=== PATIENT | female | born 1935 | race Hispanic/Latino ===

== ENCOUNTER 2018-01-21 16:31 | Inpatient (IN) | payer MEDICARE ==
[2018-01-21 16:35] VITALS: BMI 26.6
--- NOTE | 2018-01-21 17:00 | ED PDOC ---
Arrival/HPI - General Chief Complaint: Lower Extremity Problem/Injury Time Seen by Provider: 01/21/18 16:49 Historian: Patient, Family - History of Present Illness Narrative History of Present Illness (Text): 01/21/18 16:57 A 83 year old male, whose past medical history includes hypertension and falls, who is accompanied by family members, presents to the emergency department complaining of pain s/p fall. Patient reports she was holding items in one hand, and was walking up stairs. As she reach for the handle, she missed the handle of the door and resulted in falling backwards, resulting in injuring her head, left elbow, and right knee/leg. Patient notes also experiencing some lightheadedness, however denies any LOC, bilateral hip pain, left shoulder pain, nausea, vomiting, or any other complaints at this time. Also, family member mentions patient recently had surgery performed to left arm, and also patient currently does not take any medications. No PMD Time/Duration: Other (today) Symptom Onset: Sudden Symptom Course: Unchanged Past Medical History - Provider Review Nursing Documentation Reviewed: Yes - Infectious Disease Hx of Infectious Diseases: None - Tetanus Immunization Tetanus Immunization: Unknown - Cardiac Hx Hypertension: Yes - Pulmonary Hx Bronchitis: Yes Hx Chronic Obstructive Pulmonary Disease (COPD): Yes Hx Emphysema: Yes - Neurological Hx Paralysis: No - HEENT Hx Cataracts: Yes - Hematological/Oncological Hx Blood Transfusions: No Hx Blood Transfusion Reaction: No - Musculoskeletal/Rheumatological Hx Falls: Yes - Psychiatric Hx Anxiety: Yes Hx Depression: Yes Hx Substance Use: No - Anesthesia Hx Anesthesia Reactions: No Hx Malignant Hyperthermia: No - Suicidal Assessment Feels Threatened In Home Enviroment: No Family/Social History - Physician Review Nursing Documentation Reviewed: Yes Family/Social History: No Known Family HX Smoking Status: Current Some Days Smoker Hx Alcohol Use: No Hx Substance Use: No Allergies/Home Meds Allergies/Adverse Reactions: Allergies No Known Allergies Allergy (Verified 01/21/18 16:37) Home Medications: Home Meds Medication Instructions Recorded Confirmed Alprazolam [Xanax] 0.25 mg PO DAILY PRN 07/11/12 01/21/18 Tranylcypromine [Parnate] 10 mg PO DAILY 07/11/12 01/21/18 Metoprolol Succinate 25 mg PO DAILY 07/17/12 01/21/18 Review of Systems - Physician Review All systems were reviewed & negative as marked: Yes - Review of Systems Gastrointestinal: absent: Nausea, Vomiting Musculoskeletal: absent: Other (no hip pain) Physical Exam - Physical Exam Narrative Physical Exam (Text): Constitutional: No acute distress. Head: Left parietal hematoma, no laceration. Eyes: PERRL. ENT: Moist mucous membranes. Neck: Supple. No midline tenderness. Cardiovascular: Regular rate. Chest: No tenderness. Respiratory: Clear to auscultation bilaterally. GI: Soft. Nontender. Nondistended. Back: No CVA tenderness. No midline tenderness. Musculoskeletal: No tenderness or swelling of extremities. Limited ROM to right knee and left elbow, right knee edema/tenderness. Skin: No rash. Neurologic: Alert, no focal deficit. Vital Signs Reviewed: Yes Vital Signs Temp Pulse Resp BP Pulse Ox 01/21/18 16:39 97.3 F L 75 18 159/74 H 95 Temperature: Afebrile Blood Pressure: Hypertensive Pulse: Regular Respiratory Rate: Normal Appearance: Positive for: Well-Appearing, Non-Toxic, Comfortable Pain Distress: None Mental Status: Positive for: Alert and Oriented X 3 Medical Decision Making ED Course and Treatment: 01/21/18 17:00 Impression: 83 year old female brought in for pain s/p fall. Plan: -- Head CT -- Tylenol -- Left Elbow X-Ray -- Right Knee X-Ray -- Right Tibia Fibula X-Ray -- Reassess and disposition Progress Notes: Paged Dr. Barth for Ortho and Dr. Toscano accepts for admission. Pending Ortho call back and pending labs. EKG NSR 75 bpm, no ST/T wave changes. - RAD Interpretation Narrative RAD Interpretations (Text): 01/21/18 18:00 Tibia Fibula X-ray: Proximal tibia and fibula fractures. Interpreted by me. Knee X-ray: No other fractures seen. Interpreted by me. Elbow X-ray: Fracture of olecranon. Interpreted by me. Chest X-ray: shows no acute disease. Interpreted by me. 01/21/18 18:[address] without IV contrast: Dictated by: Ruddy Sterling M.D FINDINGS: BRAIN: No acute intraparenchymal hemorrhage. No mass lesion. No CT evidence for acute territorial infarct. No midline shift or extra-axial collections. VENTRICLES: No hydrocephalus. ORBITS: The orbits are unremarkable. SINUSES AND MASTOIDS: The paranasal sinuses and mastoid air cells are clear. BONES: No fracture. SOFT TISSUES: Scalp hematoma left posterior parietal region. IMPRESSION: 1. No acute intracranial pathology. 2. Scalp hematoma left posterior occipital region. Senior Living Sales Counselor: ED Physician, Radiologist - Medication Orders Current Medication Orders: Acetaminophen (Tylenol 325mg Tab) 650 mg PO STAT STA Stop: 01/21/18 16:56 - Scribe Statement The provider has reviewed the documentation as recorded by the Dorie Sparks Provider Scribe Attestation: All medical record entries made by the Saraibkaro were at my direction and personally dictated by me. I have reviewed the chart and agree that the record accurately reflects my personal performance of the history, physical exam, medical decision making, and the department course for this patient. I have also personally directed, reviewed, and agree with the discharge instructions and disposition. Disposition/Present on Arrival - Present on Arrival Any Indicators Present on Arrival: No History of DVT/PE: No History of Uncontrolled Diabetes: No Urinary Catheter: No History of Decub. Ulcer: No History Surgical Site Infection Following: None - Disposition Have Diagnosis and Disposition been Completed?: Yes Diagnosis: Tibia fracture, Fibula fracture, Elbow fracture Disposition: HOSPITALIZED Disposition Time: 18:00 Patient Plan: Admission Patient Problems: Current Active Problems Problem Status Onset Elbow fracture Acute Fibula fracture Acute Tibia fracture Acute Condition: STABLE Forms: [employer] (Djiboutian)
[2018-01-21 19:02] LABS: BASO # 0.07 K/mm3 (0.0-2.0); BASO % 0.7 % (0.0-3.0); EOS # 0.1 (0.0-0.7); EOS % 0.7 % (1.5-5.0); GRAN # 8.53 (1.4-6.5); GRAN % 79.7 % (50.0-68.0); HEMOGLOBIN 14.3 g/dL (12.0-16.0); LYMPH # 1.5 (1.2-3.4); LYMPH % 13.7 % (22.0-35.0); MEAN CELL VOLUME 99.3 fl (80.0-105.0); MEAN CORPUSCULAR HEMOGLOBIN 31.8 pg (25.0-35.0); MEAN PLATELET VOLUME 10.8 fl (7.0-11.0); MONO # 0.6 (0.1-0.6); MONO % 5.2 % (1.0-6.0); RBC 4.5 10^6/uL (3.5-6.1); RED CELL DISTRIBUTION WIDTH 13.1 % (11.5-14.5); WHITE BLOOD COUNT 10.7 10^3/uL (4.5-11.0)
[2018-01-21 19:11] LABS: INR 1.01; PARTIAL THROMBOPLASTIN TIME 32.2 Seconds (25.1-36.5); PROTHROMBIN TIME 11.5 SECONDS (9.4-12.5)
[2018-01-21 19:19] LABS: ALB/GLOB RATIO 1.3 (1.1-1.8); ALT/SGPT 29 U/L (7-56); AST/SGOT 35 U/L (14-36); BLOOD UREA NITROGEN 19 mg/dL (7-21); CALCIUM 8.8 mg/dL (8.4-10.5); GFR NON-AFRICAN AMERICAN > 60
[2018-01-21] MEDS ORDERED: Dextrose 5%/0.45% NS 1,000 ML IV SCH (20:15)
[2018-01-21] MEDS ORDERED: Albuterol-Ipratrop 3 mg / 0.5 (3 ml) UD IH PRN (21:50)
[2018-01-22] MEDS: Albuterol-Ipratrop 3 mg / 0.5 (3 ml) UD IH SCH ×4 (03:10→20:22)
--- NOTE | 2018-01-22 03:24 | HP ---
DATE OF EXAM: 01/21/2018 HISTORY OF PRESENT ILLNESS: The patient is an 83 years old known to me from multiple previous admissions, came to emergency room after she had a fall. Fall happened early afternoon. She had couple of things holding in her hand and was going upstairs. She states she was trying to get hold of side railing, but could not reach and lost balance and fell backwards, and she fell on her left side injuring her left elbow and complained of pain in the right leg. The patient was unable to walk, did not lose consciousness. Because of the pain in the left arm and right arm, she was brought to emergency room for further evaluation. PAST MEDICAL HISTORY: She has significant past medical history of, 1. Severe COPD. 2. History of depression. 3. Chronic bronchitis. SURGICAL HISTORY: Significant for left humerus fracture, for that she was operated by Dr. Barth in 2012. ALLERGIES: SHE IS NOT ALLERGIC TO ANY MEDICATIONS. MEDICATIONS AT HOME: She is on . She is on Xanax as needed and she takes inhaler cetirizine for her COPD. SOCIAL HISTORY: She lives with her son. Used to be heavy smoker, but still smokes here and there. Denies alcohol use. PHYSICAL EXAMINATION: GENERAL: She is awake, alert, oriented, and communicative. VITAL SIGNS: She is afebrile, pulse 75, respirations 18, blood pressure 129/70. LUNGS: Bilateral diffusely decreased breath sounds with expiratory rhonchi. HEART: S1, S2 audible. ABDOMEN: Soft, nontender. No rebound. No guarding. NEUROLOGIC: The patient is awake, alert, oriented, communicative. LABORATORY DATA: WBC 7.7, hemoglobin 14, hematocrit 44.7, platelets of 134,000. PT 11.5, INR 1.01. Chemistry: Sodium 139, potassium 3.7, chloride 108, CO2 of 24, BUN 19, creatinine 0.6, blood sugar 102. LFTs are within normal limits. ASSESSMENT: 1. Status post fall. 2. Progressive multiple tibial and fibular fractures and also fracture. 3. History of depression. 4. Chronic obstructive pulmonary disease. PLAN: The patient will be started on IV fluids. She will be kept n.p.o. after midnight. Dr. Ortiz will consult for cardiology clearance. Dr. Lomax to manage her from pulmonary point of view because the patient has severe COPD. We will start her on small dose of steroid and I will order for echocardiogram in a.m. and will follow up this patient in a.m. Yenni Toscano MD
[2018-01-22] MEDS: Budesonide 0.5 mg/2 ml Inhal Susp UD IH SCH ×2 (07:15→20:22)
[2018-01-22] MEDS: MethylPREDNISolone 40 mg Vial IV SCH ×2 (09:20→21:12)
--- NOTE | 2018-01-22 09:21 | RAD ---
Date of service: 01/21/2018 HISTORY: fractures COMPARISON: 07/17/2012 FINDINGS: LUNGS: No active pulmonary disease. PLEURA: No significant pleural effusion identified, no pneumothorax apparent. CARDIOVASCULAR: No aortic atherosclerotic calcification present. Aortic tortuosity Normal cardiac size. No pulmonary vascular congestion. OSSEOUS STRUCTURES: No significant abnormalities. VISUALIZED UPPER ABDOMEN: Normal. OTHER FINDINGS: None. IMPRESSION: No active disease.
[2018-01-22] MEDS: Metoprolol Succinate 25 mg XL Tab PO SCH (09:22)
--- NOTE | 2018-01-22 09:36 | CARD ---
APPROVED REPORT Date of service: 01/21/2018 EKG Measurement Heart [id number] <Conclusion> Normal sinus rhythm Left anterior fascicular block Prolonged QTc No change
--- NOTE | 2018-01-22 09:40 | CT ---
Date of service: 01/21/2018 PROCEDURE: CT HEAD WITHOUT CONTRAST. HISTORY: fall, head strike COMPARISON: 07/11/2012 TECHNIQUE: Axial computed tomography images were obtained through the head/brain without intravenous contrast. Radiation dose: Total exam DLP = 849.2 mGy-cm. This CT exam was performed using one or more of the following dose reduction techniques: Automated exposure control, adjustment of the mA and/or kV according to patient size, and/or use of iterative reconstruction technique. FINDINGS: HEMORRHAGE: No intracranial hemorrhage. BRAIN: No mass effect or edema. No atrophy or chronic microvascular ischemic changes. VENTRICLES: Unremarkable. No hydrocephalus. CALVARIUM: There is a scalp hematoma over the left parietal region PARANASAL SINUSES: Unremarkable as visualized. No significant inflammatory changes. MASTOID AIR CELLS: Unremarkable as visualized. No inflammatory changes. OTHER FINDINGS: The report concurs with the preliminary [facility] report IMPRESSION: No acute intracranial findings
--- NOTE | 2018-01-22 10:09 | RAD ---
Date of service: 01/21/2018 PROCEDURE: Radiographs of the left elbow. HISTORY: fall, elbow pain COMPARISON: No prior. FINDINGS: BONES: There is a displaced fracture of the olecranon. JOINTS: Normal. No osteoarthritis. SOFT TISSUES: Normal. JOINT EFFUSION: None. OTHER FINDINGS: None IMPRESSION: Displaced fracture of the olecranon
--- NOTE | 2018-01-22 10:14 | RAD ---
Date of service: 01/21/2018 PROCEDURE: Radiographs of the right tibia and fibula. HISTORY: fall, lower leg pain COMPARISON: None available TECHNIQUE: Frontal and lateral views obtained. FINDINGS: BONES: There is a transverse impacted fracture of the proximal tibia and proximal fibula. JOINT SPACES: Unremarkable. OTHER FINDINGS: None. IMPRESSION: There is a transverse impacted fracture of the proximal tibia and proximal fibula.
--- NOTE | 2018-01-22 10:14 | RAD ---
Date of service: 01/21/2018 PROCEDURE: Right Knee and patella radiographs. HISTORY: fall, knee pain COMPARISON: None. FINDINGS: BONES: There is a transverse impacted fracture of the proximal tibia and proximal fibula. JOINTS: Normal. No osteoarthritis. JOINT EFFUSION: Small OTHER FINDINGS: None. IMPRESSION: There is a transverse impacted fracture of the proximal tibia and proximal fibula.
--- NOTE | 2018-01-22 10:59 | CT ---
Date of service: 01/22/2018 PROCEDURE: HISTORY: proximal tibial fx COMPARISON: TECHNIQUE: FINDINGS: Comminuted fracture of the proximal tibia with fracture lines extending to the lateral tibial plateau with slight depression. Accompanying comminuted fracture of the fibular head. Large joint effusion. Femur and patella intact though there is lateral patellar subluxation. Extensive circumferential soft tissue swelling. IMPRESSION: Comminuted proximal tibial fracture as discussed above.
--- NOTE | 2018-01-22 11:19 | CON ---
DATE: 01/22/2018 HISTORY OF PRESENT ILLNESS: The patient is an 83-year-old woman who presents with fracture of her lower extremity after a fall. The fall was a mechanical fall. No loss of consciousness noted. The patient's past medical history is free of cardiac disease. She underwent cardiac catheterization several years ago, which revealed no significant CAD. Her echocardiogram last year was unremarkable. PAST MEDICAL HISTORY: Includes hypertension, as well as COPD. No diabetes mellitus noted. The patient does complain of exertional shortness of breath, however, no chest pain noted. No previous myocardial infarction. SOCIAL HISTORY: She is an active smoker. REVIEW OF SYSTEMS: A 14-point review of systems is reviewed in detail. Other than the shortness of breath, no other cardiac symptomatology is noted. PHYSICAL EXAMINATION VITAL SIGNS: The blood pressure is 93 systolic with a repeat of 110 systolic, heart rate is in the 80s. NECK: Negative JVD. LUNGS: Without rales. CARDIOPULMONARY: Heart reveal S1 and S2. EXTREMITIES: Fracture is reported, but no edema noted. LABORATORY DATA: Hemoglobin is 14.3. Chemistries, BUN and creatinine unremarkable. EKG shows normal sinus rhythm with left anterior hemiblock. IMPRESSION: 1. Status post fracture of the tibia and fibula secondary to a mechanical fall. 2. No evidence for syncope. 3. Hypertension. 4. 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 5. Chronic obstructive pulmonary disease.. 6. Dyspnea, likely due to chronic obstructive pulmonary disease.. PLAN: Given these findings, the patient's cardiac status is stable for her plan surgical repair of her fractures of the lower extremities. Aries Ortiz MD
--- NOTE | 2018-01-22 11:37 | CARD ---
APPROVED REPORT Date of service: 01/22/2018 EXAM: Two-dimensional and M-mode echocardiogram with Doppler and color Doppler. INDICATION Pre-Op 2D DIMENSIONS Left Atrium (2D)3.7 (1.6-4.0cm)IVSd0.6 (0.7-1.1cm) LVDd4.8 (3.9-5.9cm)PWd1.0 (0.7-1.1cm) LVDs3.3 (2.5-4.0cm)FS (%) 31.7 % LVEF (%)59.7 (>50%) M-Mode DIMENSIONS Aortic Root3.40 (2.2-3.7cm)Aortic Cusp Exc.1.90 (1.5-2.0cm) Aortic Valve AoV Peak Dgejksok356.0cm/Patel Peak GR.14mmHgLVOT Peak Yuceehgq767.0cm/s LVOT VTI25.90cmAI P 1/2 Qjmx026kk Mitral Valve MV E Cmultafp07.7cm/sMV A Kctbaujx23.8cm/sE/A ratio0.7 TDI Lateral E' Peak V11.10cm/sMedial E' Peak V7.70cm/sE/Lateral E'5.6 E/Medial E'8.1 Pulmonary Valve PV Peak Tgorjatc60.5cm/sPV Peak Grad.2mmHg Tricuspid Valve TR Peak Vqtxqflq719ls/sRAP TXCWCLEE15buRsDU Peak Gr.33mmHg HMVA11nkSa LEFT VENTRICLE The left ventricle is normal size. There is borderline concentric left ventricular hypertrophy. The left ventricular function is normal. The left ventricular ejection fraction is within the normal range. There is normal LV segmental wall motion. Transmitral Doppler flow pattern is Grade I-abnormal relaxation pattern. RIGHT VENTRICLE The right ventricle is normal size. There is normal right ventricular wall thickness. The right ventricular systolic function is normal. ATRIA The left atrium size is normal. The right atrium size is normal. AORTIC VALVE The aortic valve is mildly thickened but opens well. There is mild aortic regurgitation. There is no aortic valvular stenosis. MITRAL VALVE The mitral valve is mildly thickened. There is no mitral valve regurgitation noted. There is no mitral valve stenosis. TRICUSPID VALVE There is mild tricuspid regurgitation. There is mild pulmonary hypertension. PULMONIC VALVE There is trace to mild pulmonic valvular regurgitation. GREAT VESSELS The aortic root is normal in size. PERICARDIAL EFFUSION There is a trace pericardial effusion. <Conclusion> The left ventricle is normal size. There is borderline concentric left ventricular hypertrophy. The left ventricular function is normal. The left ventricular ejection fraction is within the normal range. There is normal LV segmental wall motion. Transmitral Doppler flow pattern is Grade I-abnormal relaxation pattern. There is mild aortic regurgitation. There is mild tricuspid regurgitation. There is mild pulmonary hypertension.
--- NOTE | 2018-01-22 11:47 | CON ---
DATE: 01/22/2018 REASON FOR PULMONARY CONSULTATION: Chronic obstructive pulmonary disease, preoperative evaluation. REFERRING PHYSICIAN: Yenni Toscano MD History is obtained via extensive discussion with the night nurse. I have also reviewed the chart at length, and discussed the case with the patient at length. The patient is an 83-year-old female, with past medical history significant for advanced chronic obstructive pulmonary disease, recurrent bronchitis, depression, who presents to [facility] after falling at home. Apparently, she was walking up the stairs and fell backwards, injuring her head, left elbow, and right knee/leg. After the fall, the patient was experiencing lightheadedness. There was no loss of consciousness. The patient was thus admitted for additional evaluation. The patient is not short of breath at rest. She does have chronic mild dyspnea on exertion - unchanged. She also has a chronic cough with occasional sputum production - also unchanged. There is no history of chest pain, coughing up of blood, or chest pain - made worse with deep respirations. There is no history of temperatures, chills or infectious exposure. There is no history of night sweats, weight loss or appetite change prior to the above events. No history of calf pains. No history of syncope or diaphoresis. No history of recent travel. ALLERGIES: NO KNOWN ALLERGIES. MEDICATIONS: include metoprolol, Xanax, Trelegy inhaler. SOCIAL HISTORY: Positive for extensive tobacco usage - still smokes, no alcohol. FAMILY HISTORY: No inheritable diseases. REVIEW OF SYSTEMS: No history of nausea, vomiting, or diarrhea. No acute urinary symptoms. Rest of the review of systems is noncontributory. PHYSICAL EXAMINATION: GENERAL: The patient appears comfortable at rest. She is not short of breath. VITAL SIGNS: Temperature is 97.8, pulse 78, respirations 18, blood pressure 123/62. Oxygen saturation on room air is 94-95%. Oxygen saturation on nasal cannula is 99%. HEENT: Normocephalic, atraumatic. No JVD. CARDIOVASCULAR: Systolic ejection murmur at the lower left sternal border. No S3 gallop. LUNGS: Decreased breath sounds at the bases. Very minimal bilateral rhonchi. No wheezing. EXTREMITIES: Mild edema. No cyanosis. No clubbing. Calves are nontender to palpation. GI: Abdomen is soft, nontender, and nondistended. Bowel sounds are positive. SKIN: No acute rash. NEUROLOGIC: Limited at the present time. PERTINENT LABORATORY DATA: Chest x-ray was done in the emergency room last night and reviewed. The chest x-ray shows no acute disease. Tibia and fibula x-rays were also done. There are proximal tibial and fibular fractures of the right lower extremity. Official results are pending. CBC: White count 10.7K, hemoglobin 14.3, hematocrit 44.7, platelets of 134,000. Complete metabolic profile: Chloride 108. Rest of the metabolic profile is within normal limits. IMPRESSION: 1. Right tibial, fibular fractures. 2. Status post fall at home. 3. Advanced chronic obstructive pulmonary disease. 4. History of depression. PLAN: Again, I did discuss the case with the night nurse at length. I have also reviewed the chart at length, and discussed the case with the patient at length. The patient presents to [facility] after falling at home. Apparently, she was walking up the stairs, reached for the handle of a door, and fell backwards down the stairs. Her main injuries were to her right tibia and fibula. Apparently, there are multiple fractures noted. Official results are pending. I have also reviewed the chest x-ray. There is no acute disease noted. On physical exam, there is no significant bronchospasm noted. In addition, there is no significant alveolar arterial gradient. The patient has been started on nebulizer treatments and low-dose intravenous steroids. I will also add inhaled Pulmicort. The patient is on Trelegy at home. Again, I did discuss the case with the night nurse at length. The patient is for possible surgery later today. At this point in time, the patient will be at an increased risk for perioperative complications - secondary to her long-standing chronic obstructive pulmonary disease. However, at this point in time, there are no absolute pulmonary contraindications to surgery. I will be happy to follow the patient closely through the perioperative period. Cardiology evaluation has also been ordered. I will discuss the above with Internal Medicine and Orthopedics later this morning. Thank you very much for this pulmonary consultation. Ruiz Simpson MD Psychiatric # [id number] MTDKayla
--- NOTE | 2018-01-22 12:37 | CON ---
DATE: 01/22/2018 REASON FOR CONSULTATION: Right proximal tibia and fibula fractures and left olecranon fracture. HISTORY OF PRESENT ILLNESS: This is an 83-year-old female who presented yesterday to the emergency room status post fall with right knee and left elbow pain. The patient was evaluated in the emergency room and was diagnosed with right proximal tibia and left olecranon fracture. I was consulted for further orthopedic management and treatment. The patient denies any other injuries. She denies any numbness or tingling in any of her extremities. PHYSICAL EXAMINATION GENERAL: On exam, this is an elderly female, in no apparent distress. She is awake, alert, oriented x3. EXTREMITIES: Evaluation of left upper extremity shows there is no splint in place. She has some moderate amount of swelling about the left elbow, some ecchymosis is noted on the posterior aspect of the elbow in the area of her olecranon. She has tenderness to palpation over her proximal ulna. Grossly, she is neurovascularly intact distally with palpable distal pulses. No significant swelling is appreciated about the forearm, wrist or hand. She has a previous anterior scar over her humerus consistent with previous open reduction internal fixation of a proximal humerus fracture. Evaluation of the right lower extremity shows moderate to significant amount of swelling about the right knee. Again, there is no splinting or knee immobilizer in place. She is grossly neurovascularly intact. There was no increased pain out of proportion with passive stretch of the ankle or toes. No gross deformity is appreciated. She does have tenderness over the proximal tibia and fibula. Her thigh is soft and nontender. She has no pain with gentle passive internal and external rotation of the hip. X-rays of the left elbow show a displaced left olecranon fracture. X-rays of the knee show a mildly displaced proximal tibia fracture with intra-articular extension. IMPRESSION: Left olecranon fracture and right proximal tibia and fibula fractures. PLAN: At this point we are going to place the right lower extremity in a knee immobilizer and recommend ice, elevation. We will order a CAT scan of her knee for further evaluation of the fracture. With regard to her elbow, we are going to place her in a posterior splint, again with ice and elevation. I did explain to her that most likely she will require surgical fixation of both her fractures which potentially could be done at one sitting or maybe staged. I did explain to her that due to the amount of soft tissue swelling, surgery of the proximal tibia may have to be delayed for several days to allow for the soft tissue swelling to subside. She understands this. I will also speak to her son, Christiano, so he is aware of the plan. Gabino Barth MD
[2018-01-22] MEDS: Enoxaparin 40 mg Syringe SC SCH (14:50)
[2018-01-23] MEDS: Albuterol-Ipratrop 3 mg / 0.5 (3 ml) UD IH SCH ×4 (02:20→19:12)
[2018-01-23] MEDS: Budesonide 0.5 mg/2 ml Inhal Susp UD IH SCH ×2 (07:02→19:12)
--- NOTE | 2018-01-23 07:55 | PN ---
DATE: 01/23/2018 PULMONARY NOTE SUBJECTIVE: The patient appears comfortable this morning. She is not short of breath at rest. PHYSICAL EXAMINATION: VITAL SIGNS: (Last noted in the computer): Temperature is 98.1, pulse is 90, respirations 18, blood pressure 99/58. Oxygen saturation on room air is 90%. Oxygen saturation on nasal cannula is 95%. HEENT: Normocephalic, atraumatic. No JVD. CARDIOVASCULAR: Systolic ejection murmur at the lower left sternal border. No S3 gallop. LUNGS: Decreased breath sounds at the bases. Minimal/less rhonchi. No wheezing. EXTREMITIES: Mild edema. No cyanosis, no clubbing. Calves are nontender to palpation. The right lower extremity is splinted. GI: Abdomen is soft, nontender and nondistended. Bowel sounds are positive. SKIN: No acute rash. NEUROLOGIC: Exam limited at the present time. IMPRESSION 1. Right tibial, fibular fractures 2. Status post fall at home. 3. Advanced chronic obstructive pulmonary disease. 4. History of depression. PLAN: The patient appears comfortable this morning. She is not short of breath at rest. She does state to feeling better overall. On physical exam, there is less bronchospasm noted. In addition, there is no significant alveolar-arterial gradient. I will continue the current nebulizer treatments and low-dose intravenous steroids for now. Inputs by Cardiology and Orthopedics are also noted. As per orthopedics, the patient will probably need surgery. Timing of the surgery has yet to be determined. The patient does state to feeling better today. I will discuss the above with the attending physician. Ruiz Simpson MD KOJO
--- NOTE | 2018-01-23 08:07 | PN ---
DATE: 01/22/2018 SUBJECTIVE: The patient is an 83-year-old, seen and examined, has pain in the left elbow and in the right knee. Denies any chest pain or shortness of breath, complained of cough and congestion. PHYSICAL EXAMINATION: VITAL SIGNS: She is afebrile, pulse 92, respirations 18, blood pressure . LUNGS: Bilateral fair airflow. Few expiratory rhonchi and soft crackle. HEART: S1, S2 audible. ABDOMEN: Soft, nontender. No rebound, no guarding. NEUROLOGIC: The patient is awake, alert, oriented, communicative. EXTREMITIES: Bilateral legs, no edema. LABORATORY DATA: CT of the right leg shows comminuted proximal tibial fracture. Echocardiogram showed left ventricle normal in size. Borderline concentric LVH. Left ventricular function is normal. Left ventricular ejection fraction within normal range. ASSESSMENT: 1. Status post fall. 2. Right tibial fracture. 3. Left elbow fracture. 4. Left olecranon fracture. PLAN: Orthopedic input noted and appreciated. She is in knee immobilizer. So, the patient is schedule for left olecranon ORIF by the end of the week. The patient is on DVT prophylaxis. She is on nebulizer treatment. Discontinue IV fluids, analgesics as needed. We will follow up the patient in a.m. Yenni Toscano MD
[2018-01-23] MEDS: Enoxaparin 40 mg Syringe SC SCH (11:00)
[2018-01-23] MEDS: Metoprolol Succinate 25 mg XL Tab PO SCH (11:01)
--- NOTE | 2018-01-23 11:52 | CP.PCM.PN ---
Subjective - Date & Time of Evaluation Date of Evaluation: 01/23/18 Time of Evaluation: 08:40 - Subjective Subjective: Clinical Care Coordination Note: pt seen and examined at bedside. She is AAOx3. States that pain on L arm and R lower ext is improved. Objective - Vital Signs/Intake and Output Vital Signs (last 24 hours): Temp Pulse Resp BP Pulse Ox 98.3 F 83 20 105/55 L 96 01/23/18 07:00 01/23/18 11:01 01/23/18 07:00 01/23/18 11:01 01/23/18 07:00 Intake and Output: 01/23/18 01/23/18 06:59 18:59 Intake Total 365 Balance 365 - Medications Medications: Current Medications Acetaminophen (Tylenol 325mg Tab) 650 mg PO Q4 PRN PRN Reason: Fever >100.4 F Last Admin: 01/22/18 09:21 Dose: 650 mg Albuterol/Ipratropium (Duoneb 3 Mg/0.5 Mg (3 Ml) Ud) 3 ml IH [id number] [facility] Last Admin: 01/23/18 07:02 Dose: 3 ml Albuterol/Ipratropium (Duoneb 3 Mg/0.5 Mg (3 Ml) Ud) 3 ml IH Q2H PRN PRN Reason: Shortness of Breath Alprazolam (Xanax) 0.25 mg PO DAILY PRN; Protocol PRN Reason: Anxiety Stop: 01/28/18 21:50 Last Admin: 01/23/18 09:44 Dose: 0.25 mg Budesonide (Pulmicort Respules) 0.5 mg IH [id number] [facility] Last Admin: 01/23/18 07:02 Dose: 0.5 mg Enoxaparin Sodium (Lovenox) 40 mg SC DAILY [facility]; Protocol Last Admin: 01/23/18 11:00 Dose: 40 mg Home Med (Home Med) 2 unit PO BID [facility] Methylprednisolone (Solu-Medrol) 30 mg IV Q12 [facility] Last Admin: 01/22/18 21:12 Dose: 30 mg Metoprolol Succinate (Toprol Xl) 25 mg PO DAILY [facility] Last Admin: 01/23/18 11:01 Dose: 25 mg Ondansetron HCl (Zofran Inj) 4 mg IVP Q6H PRN PRN Reason: Nausea/Vomiting - Labs Labs: 01/21/18 18:30 01/21/18 18:30 PT 11.5 SECONDS (9.4-12.5) 01/21/18 18:30 INR 1.01 01/21/18 18:30 APTT 32.2 Seconds (25.1-36.5) 01/21/18 18:30 - Constitutional Appears: Well, No Acute Distress - Head Exam Head Exam: ATRAUMATIC, NORMAL INSPECTION, NORMOCEPHALIC - Eye Exam Eye Exam: Normal appearance, PERRL - ENT Exam ENT Exam: Normal Exam - Neck Exam Neck Exam: Full ROM - Respiratory Exam Respiratory Exam: NORMAL BREATHING PATTERN - Cardiovascular Exam Cardiovascular Exam: REGULAR RHYTHM, +S1, +S2 - GI/Abdominal Exam GI & Abdominal Exam: Soft, Normal Bowel Sounds - Rectal Exam Rectal Exam: Deferred - Extremities Exam Additional comments: L arm with dressing. Able to move fingers. R lower ext with immobilizer, able to move toes. - Back Exam Back Exam: NORMAL INSPECTION - Neurological Exam Neurological Exam: Alert, Awake, Oriented x3 - Psychiatric Exam Psychiatric exam: Normal Affect - Skin Skin Exam: Normal Color, Warm Assessment and Plan - Assessment and Plan (Free Text) Assessment: pt is 83 y.o. female with pmh of HTN, falls, COPD, anxiety and depression who initially presented in ED post fall. She was found to have L olecranon fracture and right proximal tibia fracture. Plan: Ortho on consult - possible OR tomorrow for L olecranon fracture DVT prophylaxis Meds per MAR Will continue to follow clinically
[2018-01-23] MEDS: TRANYLCYPROMINE 10 MG PO SCH ×2 (12:13→17:45)
[2018-01-23] MEDS: MethylPREDNISolone 40 mg Vial IV SCH ×2 (12:24→21:57)
[2018-01-23] MEDS ORDERED: oxyCODONE 5 mg Immediate Release Tab PO PRN (12:30)
--- NOTE | 2018-01-23 12:46 | CP.PCM.PN ---
Subjective - Date & Time of Evaluation Date of Evaluation: 01/23/18 Time of Evaluation: 12:35 - Subjective Subjective: Progress note for Dr. Barth Patient seen and examined. Alert and awake, sitting up in bed. Patient states pain is controlled. Knee immobilizer on of right lower extremity. Afebrile WBC 10.7 Hgb 14.3 On examination of the left upper extremity, the posterior splint is intact. +AROM fingers and wrist. Good cap refill, grossly NVI distally On examination of the right knee, the knee immobilizer is on. The skin is intact. There is significant swelling noted. Diffuse ecchymosis of the lower extremity. +AROM foot and ankle. Calf is soft and nontender. Grossly NVI distally Left olecranon fracture Right bicondylar tibial plateau fracture At this time OR tomorrow for ORIF of left olecranon fracture NPO past midnight Cont pain control Cont knee immobilizer and ice and elevation at all times The treatment options were discussed with both the patient and her son with regards to the right tibial plateau fracture including ORIF once the swelling decreases vs cont NWB in the knee immobilizer allowing the fracture to heal with serial x-rays. It was discussed down the line if patient continues to have pain proceed with a total knee replacement. The risks,benefits and alternatives were discussed for both options. Pt is also a 1 ppd smoker which increases her risk of soft tissue complications, infection and nonunion. Patient and son,Royal, understand. Patient and her son are going to think about both options. Objective - Vital Signs/Intake and Output Vital Signs (last 24 hours): Temp Pulse Resp BP Pulse Ox 98.3 F 83 20 105/55 L 96 01/23/18 07:00 01/23/18 11:01 01/23/18 07:00 01/23/18 11:01 01/23/18 07:00 Intake and Output: 01/23/18 01/23/18 06:59 18:59 Intake Total 365 Balance 365 - Medications Medications: Current Medications Acetaminophen (Tylenol 325mg Tab) 650 mg PO Q4 PRN PRN Reason: Fever >100.4 F Last Admin: 01/23/18 12:17 Dose: 650 mg Albuterol/Ipratropium (Duoneb 3 Mg/0.5 Mg (3 Ml) Ud) 3 ml IH [id number] Last Admin: 01/23/18 07:02 Dose: 3 ml Albuterol/Ipratropium (Duoneb 3 Mg/0.5 Mg (3 Ml) Ud) 3 ml IH Q2H PRN PRN Reason: Shortness of Breath Alprazolam (Xanax) 0.25 mg PO DAILY PRN; Protocol PRN Reason: Anxiety Stop: 01/28/18 21:50 Last Admin: 01/23/18 09:44 Dose: 0.25 mg Budesonide (Pulmicort Respules) 0.5 mg IH [id number] [facility] Last Admin: 01/23/18 07:02 Dose: 0.5 mg Enoxaparin Sodium (Lovenox) 40 mg SC DAILY [facility]; Protocol Last Admin: 01/23/18 11:00 Dose: 40 mg Home Med (Home Med) 2 unit PO BID [facility] Last Admin: 01/23/18 12:13 Dose: Not Given Methylprednisolone (Solu-Medrol) 30 mg IV Q12 [facility] Last Admin: 01/23/18 12:24 Dose: 30 mg Metoprolol Succinate (Toprol Xl) 25 mg PO DAILY [facility] Last Admin: 01/23/18 11:01 Dose: 25 mg Ondansetron HCl (Zofran Inj) 4 mg IVP Q6H PRN PRN Reason: Nausea/Vomiting Oxycodone HCl (Oxycodone Immediate Release Tab) 5 mg PO Q4H PRN PRN Reason: Pain, moderate (4-7) - Labs Labs: 01/21/18 18:30 01/21/18 18:30 PT 11.5 SECONDS (9.4-12.5) 01/21/18 18:30 INR 1.01 01/21/18 18:30 APTT 32.2 Seconds (25.1-36.5) 01/21/18 18:30
--- NOTE | 2018-01-24 00:20 | PN ---
DATE: 01/23/2018 SUBJECTIVE: The patient is 83 years old. Seen and examined. Complained of pain in the left elbow and mild shortness of breath. PHYSICAL EXAMINATION: VITAL SIGNS: The patient is afebrile, pulse 77, respirations 18, blood pressure 119/59. LUNGS: Bilateral fair airflow. No rhonchi or crackle. bases. HEART: S1 and S2 audible. ABDOMEN: Soft, nontender. No rebound. No guarding. NEUROLOGIC: The patient is awake, alert, oriented. Communicative. EXTREMITIES: Left elbow in the sling. Right knee is in immobilizer. ASSESSMENT AND PLAN: 1. Status post fall. 2. Left olecranon fracture. 3. Right tibial fracture. 4. Chronic obstructive pulmonary disease. 5. History of depression. Plan is to continue the patient with current management. She is schedule to be for the left elbow surgery probably tomorrow. I also spoke to Dr. Barth who wanted to do right knee surgery in a week or two once the tissue swelling goes down. Yenni Toscano MD
[2018-01-24 00:35] LABS: URINE BILIRUBIN NEGATIVE (NEGATIVE); URINE BLOOD NEGATIVE (NEGATIVE); URINE GLUCOSE (UA) NEGATIVE (NEGATIVE); URINE LEUKOCYTE ESTERASE SMALL Leu/uL (NEGATIVE); URINE PROTEIN NEGATIVE mg/dL (<30 mg/dL); URINE UROBILINOGEN 0.2 E.U./dL (<1 E.U./dL)
[2018-01-24 00:39] LABS: URINE APPEARANCE CLEAR (CLEAR); URINE COLOR YELLOW (YELLOW)
[2018-01-24 01:12] LABS: URINE RBC 0 - 2 /hpf (0-2)
[2018-01-24 01:13] LABS: URINE BACTERIA SMALL (NEG)
[2018-01-24] MEDS: Albuterol-Ipratrop 3 mg / 0.5 (3 ml) UD IH SCH ×4 (01:35→19:43)
[2018-01-24] MEDS: Metoprolol Succinate 25 mg XL Tab PO SCH ×2 (06:25→12:31)
[2018-01-24] MEDS: Budesonide 0.5 mg/2 ml Inhal Susp UD IH SCH ×2 (07:02→19:43)
--- NOTE | 2018-01-24 08:21 | PN ---
DATE: 01/24/2018 PULMONARY NOTE SUBJECTIVE: The patient appears comfortable this morning. She is not short of breath at rest. OBJECTIVE: VITAL SIGNS: Temperature is 97.7, pulse 73, respirations 18, blood pressure 143/81. Oxygen saturation on room air is 94-96%. HEENT: Normocephalic, atraumatic. No JVD. CARDIOVASCULAR: Systolic ejection murmur at the lower left sternal border. No S3 gallop. LUNGS: Clear bilaterally this morning. EXTREMITIES: Mild edema. No cyanosis, no clubbing. Calves are nontender to palpation. The right lower extremity is splinted. GI: Abdomen is soft, nontender and nondistended. Bowel sounds are positive. SKIN: No acute rash. NEUROLOGIC: Limited at the present time. IMPRESSION: 1. Right tibial, fibular fractures. 2. Status post fall at home. 3. Advanced chronic obstructive pulmonary disease. 4. Left olecranon fracture. 5. History of depression. PLAN: The patient appears comfortable this morning. She is not short of breath at rest. She does state to feeling much better overall. On physical exam, her lungs are clear this morning. In addition, the oxygen saturation on room air is 94-96%. I will continue with the current nebulizer treatments and low-dose intravenous steroids for now. I did review the note by Dr. Hamm (orthopedics). The patient is for repair of her olecranon fracture later this morning. Clinical status of the patient is certainly improved - compared to the initial presentation. She does remain guarded overall. Again, she is certainly at an increased risk for perioperative complications - due to her longstanding chronic obstructive pulmonary disease. However, again, no absolute pulmonary contraindications to surgery exist at this point. I will discuss the above with the attending physician. Ruiz Simpson MD KOJO
[2018-01-24] MEDS ORDERED: Bupivacaine 0.5% 50 ML IJ ONE (08:55)
[2018-01-24] MEDS ORDERED: Midazolam 2 MG/2 ML VIAL ONE (09:02)
[2018-01-24] MEDS ORDERED: Etomidate 20 mg/10ml Inj IV ONE (09:02)
[2018-01-24] MEDS ORDERED: Propofol 10 mg/ml Inj (20 ML) ONE (09:02)
[2018-01-24] MEDS ORDERED: Sevoflurane - Inhalation Anesthetic Liq (250 ml) ONE (09:29)
[2018-01-24] MEDS: MethylPREDNISolone 40 mg Vial IV SCH ×2 (10:00→21:28)
[2018-01-24] MEDS: TRANYLCYPROMINE 10 MG PO SCH ×3 (10:00→17:52)
[2018-01-24] MEDS: Enoxaparin 40 mg Syringe SC SCH (10:00)
[2018-01-24] MEDS ORDERED: Rocuronium 10 mg/ml (5 ml) ONE (10:34)
--- NOTE | 2018-01-24 11:11 | CP.PCM.PN ---
Subjective - Date & Time of Evaluation Date of Evaluation: 01/24/18 Time of Evaluation: 14:30 - Subjective Subjective: Pt seen and examined at bedside. She is s/p ORIF of [place] price. She denies any pain and in no acute distress. Objective - Vital Signs/Intake and Output Vital Signs (last 24 hours): Temp Pulse Resp BP Pulse Ox 97.7 F 73 18 143/81 94 L 01/24/18 08:15 01/24/18 08:15 01/24/18 08:15 01/24/18 08:15 01/24/18 08:15 Intake and Output: 01/24/18 01/24/18 06:59 18:59 Intake Total 0 Balance 0 - Medications Medications: Current Medications Acetaminophen (Tylenol 325mg Tab) 650 mg PO Q4 PRN PRN Reason: Fever >100.4 F Last Admin: 01/23/18 12:17 Dose: 650 mg Albuterol/Ipratropium (Duoneb 3 Mg/0.5 Mg (3 Ml) Ud) 3 ml IH [id number] [facility] Last Admin: 01/24/18 07:02 Dose: 3 ml Albuterol/Ipratropium (Duoneb 3 Mg/0.5 Mg (3 Ml) Ud) 3 ml IH Q2H PRN PRN Reason: Shortness of Breath Alprazolam (Xanax) 0.25 mg PO DAILY PRN; Protocol PRN Reason: Anxiety Stop: 01/28/18 21:50 Last Admin: 01/23/18 09:44 Dose: 0.25 mg Budesonide (Pulmicort Respules) 0.5 mg IH [id number] [facility] Last Admin: 01/24/18 07:02 Dose: 0.5 mg Enoxaparin Sodium (Lovenox) 40 mg SC DAILY [facility]; Protocol Last Admin: 01/23/18 11:00 Dose: 40 mg Home Med (Home Med) 2 unit PO BID [facility] Last Admin: 01/23/18 17:45 Dose: Not Given Methylprednisolone (Solu-Medrol) 30 mg IV Q12 [facility] Last Admin: 01/23/18 21:57 Dose: 30 mg Metoprolol Succinate (Toprol Xl) 25 mg PO DAILY [facility] Last Admin: 01/24/18 06:25 Dose: 25 mg Ondansetron HCl (Zofran Inj) 4 mg IVP Q6H PRN PRN Reason: Nausea/Vomiting Oxycodone HCl (Oxycodone Immediate Release Tab) 5 mg PO Q4H PRN PRN Reason: Pain, moderate (4-7) - Labs Labs: 01/21/18 18:30 01/21/18 18:30 PT 11.5 SECONDS (9.4-12.5) 01/21/18 18:30 INR 1.01 01/21/18 18:30 APTT 32.2 Seconds (25.1-36.5) 01/21/18 18:30 - Constitutional Appears: Well, Non-toxic, No Acute Distress - Head Exam Head Exam: ATRAUMATIC, NORMAL INSPECTION - Eye Exam Eye Exam: Normal appearance - ENT Exam ENT Exam: Mucous Membranes Moist, Normal Exam - Neck Exam Neck Exam: Full ROM, Normal Inspection - Respiratory Exam Respiratory Exam: Clear to Ausculation Bilateral, NORMAL BREATHING PATTERN - Cardiovascular Exam Cardiovascular Exam: +S1, +S2 - GI/Abdominal Exam GI & Abdominal Exam: Soft, Normal Bowel Sounds - Rectal Exam Rectal Exam: Deferred - Extremities Exam Additional comments: L elbow with splint and bulky dressing. R LE with immobilizer. - Neurological Exam Neurological Exam: Alert, Awake, Oriented x3 Assessment and Plan - Assessment and Plan (Free Text) Assessment: pt is 83 y.o. female with pmh of HTN, falls, COPD, anxiety and depression who initially presented in ED post fall. She was found to have L olecranon fracture and right proximal tibia fracture. She is s/p ORIF of L olecranon fracture. Plan: Ortho on consult - S/P ORIF of L olecranon fracture Pain management Possible OR for R proximal tibia once the swelling is improved DVT prophylaxis Incentive Spirometer Meds per APR Will continue to follow clinically
[2018-01-24] MEDS ORDERED: Bacitracin Ointment 30 GM TUBE ONE (11:26)
[2018-01-24] MEDS ORDERED: oxyCODONE 10 mg Immediate Release Tab PO PRN (11:46)
[2018-01-24] MEDS ORDERED: Morphine 2 mg/ml ISec IVP PRN ×2 (11:47→11:52)
--- NOTE | 2018-01-24 11:49 | PCM.SURG1 ---
Surgeon's Initial Post Op Note - Surgeon's Notes Surgeon: Sheela Barth MD Feed Preparation Operator: Ari Aguirre PA-C Type of Anesthesia: General Endo Anesthesia Administered By: Dr. Yates Pre-Operative Diagnosis: left olecranon fx Operative Findings: see full note Post-Operative Diagnosis: same Operation Performed: ORIF left olecranon fx Specimen/Specimens Removed: none Estimated Blood Loss: EBL {In ML}: 20 Blood Products Given: N/A Drains Used: No Drains Post-Op Condition: Fair Date of Surgery/Procedure: 01/24/18 Time of Surgery/Procedure: 11:49
[2018-01-24] MEDS ORDERED: Lactated Ringer's 1,000 ML IV SCH (12:00)
[2018-01-24] MEDS ORDERED: ceFAZolin IV 2 gm in 50 mL D5W IVPB SCH ×2 (12:00→17:00)
--- NOTE | 2018-01-24 12:34 | RAD ---
Date of service: 01/24/2018 PROCEDURE: Radiographs of the left elbow. HISTORY: s/p ORIF L olecranon fx. pt in PACU COMPARISON: No prior. FINDINGS: BONES: There is a plate and multiple screws through the olecranon fracture. There is anatomic alignment. There was previous internal fixation of the humerus. JOINTS: Normal. No osteoarthritis. SOFT TISSUES: Normal. JOINT EFFUSION: None. OTHER FINDINGS: None IMPRESSION: Internal fixation olecranon fracture
[2018-01-24] MEDS ORDERED: Oxycodone/Acetaminophen 5/325 mg Tab ONE (13:14)
[2018-01-24] MEDS ORDERED: Oxycodone/Acetaminophen 5/325 mg Tab PO ONE (13:15)
[2018-01-24] MEDS ORDERED: Oxycodone/Acetaminophen 5/325 mg Tab PO STA (13:15)
--- NOTE | 2018-01-24 13:55 | RAD ---
Date of service: 01/24/2018 PROCEDURE: Fluoroscopy up to 1 hr HISTORY: ORIF LT. ELBOW COMPARISON: TECHNIQUE: 19.7 sec of fluoro time. 0.47 mGy cumulative dose. 2 images submitted FINDINGS: There is internal fixation of the olecranon fracture. There is a plate and multiple screws. There are no complicating factors IMPRESSION: As above
[2018-01-24] MEDS ORDERED: oxyCODONE 5 mg Immediate Release Tab PO PRN (13:58)
--- NOTE | 2018-01-24 15:36 | PN ---
CARDIOLOGY FOLLOWUP DATE: 01/24/2018 SUBJECTIVE: The patient is status post surgery. She is awake, alert without complaints. PHYSICAL EXAMINATION VITAL SIGNS: Stable. Heart rate is in the 60s. NECK: Negative JVD. LUNGS: Without rales. HEARTH: S1 and S2. EXTREMITIES: Without edema. LABORATORIES: Noted. IMPRESSION 1. The patient tolerated surgery well. 2. Status post fall. 3. Fracture of lower extremities as well as the upper extremity. 4. Hypertension. Given these findings, the patient is doing well and stable hemodynamically post surgery. Aries Ortiz MD
[2018-01-24 15:58] VITALS: RESP 18
[2018-01-24] MEDS: ceFAZolin IV 2 gm in 50 mL D5W IVPB SCH (17:36)
--- NOTE | 2018-01-24 22:22 | OP ---
PROCEDURE DATE: 01/24/2018 PREOPERATIVE DIAGNOSES: Left olecranon fracture, status post fall. POSTOPERATIVE DIAGNOSES: Left olecranon fracture, status post fall. PROCEDURE: Open reduction and internal fixation of left olecranon fracture with a plate. SURGEON: Gabino Barth MD PHARMACOLOGY TEACHER: Dr. Barth was assisted by Marysol Aguirre, the physician information technology assistant. Ms. Aguirre was scrubbed and present throughout the entire case and assisted in the patient positioning, retraction and wound closure. ANESTHESIA: General. COMPLICATIONS: None. ESTIMATED BLOOD LOSS: 10 mL. IMPLANT: Synthes olecranon locking plate. INDICATION FOR PROCEDURE: This is an 83-year-old female who presented status post fall sustaining left elbow injury. Clinical and radiographic examination was consistent with a displaced left olecranon fracture. Recommendations were for an open reduction and internal fixation of the fracture once the patient was medically optimized. The risks, benefits, and alternatives of the procedure were discussed with the patient, and informed consent was obtained. OPERATIVE PROCEDURE: After the surgical site was identified and verified in the preoperative holding area, the patient was taken to the operating room and placed supine on the operating room table. After administration of general anesthesia, the patient received 2 g of Ancef IV. A tourniquet was placed about the left arm. Care was taken to make sure all bony prominences and nerves were well padded and protected. The left upper extremity was prepped and draped in the usual sterile fashion. The tourniquet was inflated. Approximately 10-cm curvilinear incision was made over the proximal ulna extending around the olecranon over the distal humerus. Soft tissues were dissected sharply down to the fracture site. Fracture site was exposed and fracture hematoma was evacuated. The wound was irrigated with antibiotic saline solution. At this point, an open reduction was performed and reduction was provisionally held first with bone reduction forceps and K-wires. The position of the reduction was confirmed using the image intensifier satisfied. A Synthes olecranon plate was placed over the olecranon and proximal ulna and provisionally fixed using K-wires. The position of the plate was then confirmed. The fracture was then fixed by inserting four locking screws proximally and three distal lock screws in the shaft. Once this was done, all K-wires were removed. Position of screws and hardware was confirmed using the image intensifier in multiple planes. Once satisfied, the wound was copiously irrigated and closed in a layered fashion. A sterile dressing was applied, and a posterior splint was placed. The patient was awakened from the procedure and taken to the recovery room in stable condition. Gabino Barth MD
--- NOTE | 2018-01-24 23:49 | PN ---
DATE: 01/24/2018 SUBJECTIVE: The patient is 83 years old. Seen in recovery, sleepy, but arousable. PHYSICAL EXAMINATION: VITAL SIGNS: She is afebrile, pulse 67, respirations 16, blood pressure 90/60. LUNGS: Bilateral fair airflow. No rhonchi or crackle. HEART: S1 and S2 audible. ABDOMEN: Soft, nontender. No rebound. No guarding. NEUROLOGIC: She is awake, alert, oriented. EXTREMITIES: Left arm is in the dressing and right knee is in immobilizer. ASSESSMENT AND PLAN: 1. Status post fall and left olecranon fracture, status post open reduction and internal fixation. 2. History of chronic obstructive pulmonary disease. 3. History of hypertension. The plan is that the patient will continue analgesic. Give intravenous fluids. Continue nebulizer treatment. She is on deep venous thrombosis prophylaxis. As per Dr. Barth, he wants to operate on right knee next week. In the meantime, we can transfer the patient to transitional care unit. As per transitional care unit evaluation, the patient might be able to transfer depending on how she looks tomorrow morning. If she is hemodynamically stable, she can be transferred to transitional care unit to receive her care and have second surgery done next week. Yenni Toscano MD
[2018-01-25] MEDS: Albuterol-Ipratrop 3 mg / 0.5 (3 ml) UD IH SCH ×4 (01:07→19:22)
[2018-01-25] MEDS: ceFAZolin IV 2 gm in 50 mL D5W IVPB SCH ×3 (02:02→17:23)
[2018-01-25] MEDS: Budesonide 0.5 mg/2 ml Inhal Susp UD IH SCH ×2 (07:11→19:22)
[2018-01-25 07:18] LABS: GRAN # 7.67 (1.4-6.5); GRAN % 85.4 % (50.0-68.0); LYMPH # 0.7 (1.2-3.4); LYMPH % 7.8 % (22.0-35.0); MEAN CORPUSCULAR HEMOGLOBIN 31.2 pg (25.0-35.0); MEAN CORPUSCULAR HGB CONC 31.2 g/dl (31.0-37.0); MONO # 0.6 (0.1-0.6); MONO % 6.8 % (1.0-6.0); RBC 3.3 10^6/uL (3.5-6.1); RED CELL DISTRIBUTION WIDTH 13.5 % (11.5-14.5)
[2018-01-25 07:20] LABS: HEMOGLOBIN 10.3 g/dL (12.0-16.0)
[2018-01-25 08:04] LABS: ALB/GLOB RATIO 1.1 (1.1-1.8); ALBUMIN 3.1 g/dL (3.0-4.8); ALT/SGPT 30 U/L (7-56); AST/SGOT 23 U/L (14-36); BLOOD UREA NITROGEN 25 mg/dL (7-21); GFR NON-AFRICAN AMERICAN > 60
--- NOTE | 2018-01-25 08:31 | CP.PCM.PN ---
Subjective - Date & Time of Evaluation Date of Evaluation: 01/25/18 Time of Evaluation: 08:24 - Subjective Subjective: Patient alert and awake. Sitting in bed comfortable. Denies any significant pain, numbness or tingling. VSS WBC 9.0 Hgb 10.1 Left elbow: posterior splint and sling in place. Dressings clean and intact. +AROM fingers and wrist. Sensation intact to light touch. Grossly NVI distally Right knee: knee immobilizer on. Diffuse ecchymosis. Large effusion. Calf is soft and nontender. Grossly NVI distally s/p ORIF L olecranon fracture Bicondylar tibial plateau fracture Cont DVT prophylaxis Cont pain control NWB LUE NWB RLE OR monday for ORIF right tibia fx, pending family decision Keflex 500mg QID for the next 5 days Discussed above with Dr. Barth, agrees with above Objective - Vital Signs/Intake and Output Vital Signs (last 24 hours): Temp Pulse Resp BP Pulse Ox 97.5 F L 73 18 112/48 L 91 L 01/24/18 22:11 01/24/18 22:11 01/24/18 22:11 01/24/18 22:11 01/24/18 22:11 Intake and Output: 01/25/18 01/25/18 06:59 18:59 Intake Total 120 Balance 120 - Medications Medications: Current Medications Acetaminophen (Tylenol 325mg Tab) 650 mg PO Q4 PRN PRN Reason: Fever >100.4 F Last Admin: 01/23/18 12:17 Dose: 650 mg Albuterol/Ipratropium (Duoneb 3 Mg/0.5 Mg (3 Ml) Ud) 3 ml IH [id number] [facility] Last Admin: 01/25/18 07:10 Dose: 3 ml Albuterol/Ipratropium (Duoneb 3 Mg/0.5 Mg (3 Ml) Ud) 3 ml IH Q2H PRN PRN Reason: Shortness of Breath Last Admin: 01/25/18 00:46 Dose: 3 ml Alprazolam (Xanax) 0.25 mg PO DAILY PRN; Protocol PRN Reason: Anxiety Stop: 01/28/18 21:50 Last Admin: 01/23/18 09:44 Dose: 0.25 mg Budesonide (Pulmicort Respules) 0.5 mg IH [id number] [facility] Last Admin: 01/25/18 07:11 Dose: 0.5 mg Enoxaparin Sodium (Lovenox) 40 mg SC DAILY [facility]; Protocol Last Admin: 01/24/18 10:00 Dose: Not Given Home Med (Home Med) 2 unit PO BID [facility] Last Admin: 01/24/18 17:52 Dose: 2 unit Methylprednisolone (Solu-Medrol) 20 mg IVP Q12 [facility] Metoprolol Succinate (Toprol Xl) 25 mg PO DAILY [facility] Last Admin: 01/24/18 12:31 Dose: Not Given Morphine Sulfate (Morphine) 1 mg IVP Q6H PRN PRN Reason: Pain, severe (8-10) Morphine Sulfate (Morphine) 1 mg IVP Q15M PRN PRN Reason: Pain, moderate (4-7) Ondansetron HCl (Zofran Inj) 4 mg IVP Q6H PRN PRN Reason: Nausea/Vomiting Oxycodone HCl (Oxycodone Immediate Release Tab) 10 mg PO Q4H PRN PRN Reason: Pain, moderate (4-7) Oxycodone HCl (Oxycodone Immediate Release Tab) 5 mg PO Q4H PRN PRN Reason: Pain, Mild (1-3) - Labs Labs: 01/25/18 07:00 01/25/18 07:00 PT 11.5 SECONDS (9.4-12.5) 01/21/18 18:30 INR 1.01 01/21/18 18:30 APTT 32.2 Seconds (25.1-36.5) 01/21/18 18:30
[2018-01-25] MEDS: TRANYLCYPROMINE 10 MG PO SCH ×2 (09:47→17:24)
[2018-01-25] MEDS: Enoxaparin 40 mg Syringe SC SCH (09:48)
[2018-01-25] MEDS: Metoprolol Succinate 25 mg XL Tab PO SCH (09:48)
[2018-01-25 09:50] VITALS: TEMP 98
--- NOTE | 2018-01-25 09:58 | PN ---
DATE: 01/25/2018 SUBJECTIVE: The patient appears comfortable this morning. She is not short of breath at rest. PHYSICAL EXAMINATION: VITAL SIGNS: (Last noted in the computer): Temperature 97.5, pulse 73, respirations 18, blood pressure 112/48. Oxygen saturation on room air is 91-94%. Oxygen saturation on nasal cannula is 97%. HEENT: Normocephalic, atraumatic. NECK: No JVD. CARDIOVASCULAR: Systolic ejection murmur at the lower left sternal border. No S3 gallop. LUNGS: Clear bilaterally. EXTREMITIES: Mild edema. No cyanosis. No clubbing. Calves are nontender to palpation. The right lower extremity remains splinted. GI: Abdomen is soft, nontender and nondistended. Bowel sounds are positive. SKIN: No acute rash. NEUROLOGIC: Exam limited at the present time. IMPRESSION: 1. Right tibial, fibular fractures. 2. Left olecranon fracture. 3. Status post fall at home. 4. Advanced chronic obstructive pulmonary disease. 5. History of depression. PLAN: The patient appears comfortable this morning. She is not short of breath at rest. She does state to feeling much better overall. I did discuss the case with the night nurse at length. The night nurse stated that the patient had a good night. On physical exam, her lungs remain clear. In addition, there is no significant alveolar-arterial gradient. I will continue with the current nebulizer treatments and decrease the intravenous steroids this morning. Orthopedic evaluation input is noted. The patient is status post repair of her left olecranon fracture. The timing for repair of her right tibial and fibular fractures remain somewhat up in the air. Clinical status of the patient is certainly improved - compared to the initial presentation. She does remain guarded overall. I will discuss the above with the attending physician. Ruiz Simpson MD MTDD
[2018-01-25] MEDS ORDERED: MethylPREDNISolone 40 mg Vial IVP SCH (10:00)
[2018-01-25 14:29] VITALS: BP 93/49; PULSE 80; O2SAT 92
--- NOTE | 2018-01-25 15:10 | PN ---
CARDIOLOGY FOLLOWUP DATE: 01/25/2018 SUBJECTIVE: The patient is stable post surgery. PHYSICAL EXAMINATION: VITAL SIGNS: Blood pressure is 111/55 and heart rates in the 70s. NECK: Negative JVD. LUNGS: Without rales. HEART: S1, S2. EXTREMITIES: Without edema. LABORATORY DATA: Hemoglobin is 10. BUN and creatinine unremarkable. IMPRESSION: 1. Status post fall. 2. Chronic obstructive pulmonary disease. 3. Status post surgery of the upper extremities. 4. Hypertension. Given these findings, the patient is hemodynamically stable. I have discussed with the patient about the need to stop smoking. Would consider an outpatient stress test after she recovers from her surgery. Aries Ortiz MD
--- NOTE | 2018-01-25 20:05 | PN ---
DATE: 01/25/2018 SUBJECTIVE: The patient is 83 years old. Seen and examined. Complained of pain in the left arm. Complained of pain in the right knee. Having her breakfast. Does not really like the food. She states she has no appetite. PHYSICAL EXAMINATION: VITAL SIGNS: She is afebrile, pulse 80, respirations 18, blood pressure 93/49. LUNGS: Bilateral fair airflow. No rhonchi or crackle. HEART: S1 and S2 audible. ABDOMEN: Soft, nontender. No rebound. No guarding. NEUROLOGIC: The patient is awake, alert, oriented. Communicative. EXTREMITIES: Left arm is in the sling, status post open reduction and internal fixation of olecranon process. LABORATORY EXAMINATION: WBC 9, hemoglobin 10.3, hematocrit 33, platelets 157. Chemistry: Sodium 139, potassium 4.4, chloride 105, CO2 of 30, BUN 25, creatinine 0.7, blood sugar 126. Urinalysis is unremarkable. ASSESSMENT AND PLAN: 1. Status post fall. 2. Left olecranon , status post open reduction and internal fixation. 3. Right tibial fracture. 4. Chronic obstructive pulmonary disease. 5. Anxiety disorder. PLAN: Currently, the patient is on nebulizer treatment. She is on cefazolin. She is on DVT prophylaxis. Analgesic as needed. She is on IV prednisone, we will continue that. The patient did not make up her mind that she want to have right knee surgery done. Probably, she can be transferred to TCU, and she can be taken to same-day surgery for her right knee when she make up her mind. So, we can continue her antibiotic and start physical therapy. Yenni Toscano MD
== END 2018-01-25 19:38 | DRG 511 ==
LOC: ED 16:31 → ERH 18:55 → 5RSO 21:42
PROVIDERS: ADMIT Internal Medicine; ATTEND Internal Medicine
PROC: 3E0F7GC Introduction of Other Therapeutic Substance into Respiratory Tract, Via Natural or Artificial Opening (ICD-10-PCS; 2018-01-22)
PROC: 0PSL04Z Reposition Left Ulna with Internal Fixation Device, Open Approach (ICD-10-PCS; principal; 2018-01-24 08:15)
DX: S52.022A Displaced fracture of olecranon process without intraarticular extension of left ulna, initial encounter for closed fracture (principal); S82.141A Displaced bicondylar fracture of right tibia, initial encounter for closed fracture; S82.451A Displaced comminuted fracture of shaft of right fibula, initial encounter for closed fracture; S00.03XA Contusion of scalp, initial encounter; J44.9 Chronic obstructive pulmonary disease, unspecified; F32.9 Major depressive disorder, single episode, unspecified; I10 Essential (primary) hypertension; F41.9 Anxiety disorder, unspecified; F17.200 Nicotine dependence, unspecified, uncomplicated; W18.30XA Fall on same level, unspecified, initial encounter; Y92.009 Unspecified place in unspecified non-institutional (private) residence as the place of occurrence of the external cause; Y93.01 Activity, walking, marching and hiking

== ENCOUNTER 2018-01-25 19:38 | Inpatient (IN) | payer OTHER, MEDICARE ==
[2018-01-25] MEDS: MethylPREDNISolone 40 mg Vial IVP SCH (19:45)
[2018-01-25] MEDS ORDERED: Morphine 2 mg/ml ISec IVP PRN (20:52)
[2018-01-25] MEDS ORDERED: Albuterol-Ipratrop 3 mg / 0.5 (3 ml) UD IH PRN (20:52)
[2018-01-25] MEDS ORDERED: oxyCODONE 5 mg Immediate Release Tab PO PRN (20:52)
[2018-01-25] MEDS ORDERED: oxyCODONE 10 mg Immediate Release Tab PO PRN (20:52)
[2018-01-25] MEDS: ceFAZolin IV 2 gm in Dextrose 2 GM/50 ML BAG IVPB SCH (21:53)
[2018-01-26] MEDS: Albuterol-Ipratrop 3 mg / 0.5 (3 ml) UD IH SCH ×4 (02:00→21:20)
[2018-01-26] MEDS: ceFAZolin IV 2 gm in Dextrose 2 GM/50 ML BAG IVPB SCH ×3 (05:24→23:00)
[2018-01-26] MEDS: Enoxaparin 40 mg Syringe SC SCH (05:40)
[2018-01-26] MEDS: Arformoterol 15 mcg/2 ml Inh Sol IH SCH ×2 (07:33→21:20)
[2018-01-26] MEDS: Budesonide 0.5 mg/2 ml Inhal Susp UD IH SCH ×2 (07:34→21:20)
--- NOTE | 2018-01-26 07:51 | PN ---
DATE: 01/26/2018SUBJECTIVE: The patient appears comfortable this morning. She is not short of breath at rest. PHYSICAL EXAMINATION: VITALS (Last noted in the computer): Temperature is 98.2, pulse is 78, respirations 18, blood pressure 98/50. Oxygen saturation on nasal cannula is 94%. HEENT: Normocephalic, atraumatic. No JVD. CARDIOVASCULAR: Systolic ejection murmur at the lower left sternal border. No S3 gallop. LUNGS: Minimal bilateral rhonchi this morning. EXTREMITIES: Mild edema. No cyanosis. No clubbing. Calves are nontender to palpation. The right lower extremity remains splinted. GASTROINTESTINAL: Abdomen is soft, nontender, and nondistended. Bowel sounds are positive. SKIN: No acute rash. NEUROLOGIC EXAM: Limited at the present time. IMPRESSION: 1. Right tibial, fibular fractures. 2. Left olecranon fracture. 3. Status post fall at home. 4. Advanced chronic obstructive pulmonary disease. 5. History of depression. PLAN: The patient appears comfortable this morning. She is not short of breath at rest. She does state to feeling better overall. I did discuss the case with the night nurse at length. The night nurse stated that the patient had a good night. On physical exam, minimal bilateral rhonchi are appreciated this morning. However, there is no significant alveolar-arterial gradient. I will continue the current nebulizer treatments, inhaled steroids, and low-dose intravenous steroids (decreased yesterday) for now. Inputs by Cardiology and Orthopedics are also noted. Again, I did discuss the case with the patient and nurse at length. The patient is for probable repair of her right tibial and fibular fractures early next week. I will check with orthopedics in reference to the timing of the surgery. The patient remains guarded overall. The patient is now on the transitional unit. She will be transferred back to the acute care setting next week. I will discuss the above with the attending physician. Ruiz Simpson MD MTDKayla
--- NOTE | 2018-01-26 09:26 | CP.PCM.PN ---
Subjective - Date & Time of Evaluation Date of Evaluation: 01/26/18 Time of Evaluation: 09:23 - Subjective Subjective: Pt awake, alert. Adequate pain control. Afebrile, VSS LUE: NVI distally splint and dressing removed incision clean and dry no cellulitis swelling improved POD#2 dressing and splint reapplied Spoke with patient regarding R proximal tibia fx. Pt states she wants to proceed with surgery which would be an ORIF R proximal tibia fx. At this time, plan to do surgery on Monday. Cont NWB RLE and ice, elevation. Cont DVT prophylaxis. Objective - Vital Signs/Intake and Output Vital Signs (last 24 hours): Temp Pulse Resp BP Pulse Ox 98.2 F 76 18 98/50 L 01/26/18 00:35 01/26/18 00:35 01/26/18 00:35 01/26/18 00:35 - Medications Medications: Current Medications Acetaminophen (Tylenol 325mg Tab) 650 mg PO Q4H PRN; Protocol PRN Reason: Fever >100.4 F Albuterol/Ipratropium (Duoneb 3 Mg/0.5 Mg (3 Ml) Ud) 3 ml IH Q2H PRN; Protocol PRN Reason: Shortness of Breath Last Admin: 01/25/18 22:59 Dose: 3 ml Albuterol/Ipratropium (Duoneb 3 Mg/0.5 Mg (3 Ml) Ud) 3 ml IH [id number]; Protocol Last Admin: 01/26/18 07:33 Dose: 3 ml Alprazolam (Xanax) 0.25 mg PO DAILY PRN; Protocol PRN Reason: Anxiety Stop: 02/01/18 20:47 Arformoterol Tartrate (Brovana) 15 mcg IH [id number] [facility] Last Admin: 01/26/18 07:33 Dose: 15 mcg Budesonide (Pulmicort Respules) 0.5 mg IH [id number] [facility]; Protocol Last Admin: 01/26/18 07:34 Dose: 0.5 mg Enoxaparin Sodium (Lovenox) 40 mg SC 0600 [facility]; Protocol Last Admin: 01/26/18 05:40 Dose: 40 mg Home Med (Home Med) 2 unit PO BID [facility] Cefazolin Sodium/Dextrose (Ancef Iv 2 Gm Duplex) 2 gm in 50 mls @ 50 mls/hr IVPB Q8 [facility]; Protocol Last Admin: 01/26/18 05:24 Dose: 50 mls/hr Methylprednisolone (Solu-Medrol) 20 mg IVP 0600,1800 [facility]; Protocol Last Admin: 01/25/18 19:45 Dose: 20 mg Metoprolol Succinate (Toprol Xl) 25 mg PO DAILY [facility]; Protocol Morphine Sulfate (Morphine) 1 mg IVP Q6H PRN; Protocol PRN Reason: Pain, severe (8-10) Ondansetron HCl (Zofran Inj) 4 mg IVP Q6H PRN; Protocol PRN Reason: Nausea/Vomiting Oxycodone HCl (Oxycodone Immediate Release Tab) 10 mg PO Q4H PRN; Protocol PRN Reason: Pain, moderate (4-7) Oxycodone HCl (Oxycodone Immediate Release Tab) 5 mg PO Q4H PRN; Protocol PRN Reason: Pain, Mild (1-3) Last Admin: 01/26/18 05:37 Dose: 5 mg
[2018-01-26] MEDS ORDERED: Home Med 1 UNIT PO SCH (10:00)
[2018-01-26] MEDS: TRANYLCYPROMINE 10 MG PO SCH ×2 (10:15→17:02)
[2018-01-26] MEDS: Metoprolol Succinate 25 mg XL Tab PO SCH (10:21)
--- NOTE | 2018-01-26 10:41 | RAD ---
Date of service: 01/26/2018 PROCEDURE: Right Femur Radiographs. HISTORY: rule out fx COMPARISON: None. TECHNIQUE: AP and Lateral Radiographs of the right femur. FINDINGS: FEMUR: Normal. No fracture. SOFT TISSUES: Normal. OTHER FINDINGS: None. IMPRESSION: Unremarkable radiographs of the right femur.
--- NOTE | 2018-01-26 10:42 | RAD ---
Date of service: 01/26/2018 PROCEDURE: Radiographs of the pelvis. HISTORY: rule out fx COMPARISON: None. FINDINGS: BONES: Pelvic Bones: Unremarkable. Hips: Grossly unremarkable. JOINTS: Sacroiliac Joints: Unremarkable. Pubic Symphysis: Unremarkable. OTHER FINDINGS: None. IMPRESSION: Unremarkable radiographs of the pelvis.
[2018-01-26] MEDS ORDERED: Magnesium Citrate Oral SOL (300 ml) PO ONE (10:57)
[2018-01-26] MEDS: MethylPREDNISolone 40 mg Vial IVP SCH (17:00)
--- NOTE | 2018-01-26 20:19 | HP ---
DATE OF EXAM: 01/26/2018 HISTORY OF PRESENT ILLNESS: The patient is an 83-year-old who has history of depression, history of advanced COPD, has been smoker all her life. The patient states she was carrying some object and going upstairs towards her bedroom. She lost balance and fell backward, hit her head, landed on left side of her body. She was unable to get up, family called ambulance, she was brought to emergency room, was found to have olecranon fracture and left tibial fracture. She underwent open reduction and internal fixation day before yesterday and transferred to TCU for rehab and possible surgical intervention for right tibial fracture next week. PAST MEDICAL HISTORY: She has significant past medical history of, 1. COPD. 2. History of depression. ALLERGIES: SHE IS NOT ALLERGIC TO ANY MEDICATION. MEDICATION AT HOME: She is on metoprolol 25 mg daily, Xanax 0.25 mg daily and Parnate 10 mg 2 tablet twice a day. SOCIAL HISTORY: She is an active smoker, lives with her daughter. REVIEW OF SYSTEMS: Significant for pain in the right knee and pain in the left elbow. PHYSICAL EXAMINATION: GENERAL: She is awake, alert, and able to communicate. VITAL SIGNS: She is afebrile. Pulse 70, respirations 18, and blood pressure 95/50. LUNGS: Bilateral soft crackle. HEART: S1 and S2 audible. ABDOMEN: Soft and nontender. No rebound. No guarding. NEUROLOGICAL: She is awake, alert, oriented, able to communicate, and her left arm is in the sling and right knee is in immobilizer. ASSESSMENT: 1. Status post fall. 2. Right proximal tibial comminuted fracture. 3. Left olecranon fracture. 4. Chronic obstructive pulmonary disease. PLAN: We will continue the patient on current analgesics. She is on IV antibiotics. She is on DVT prophylaxis. Plan for right tibial open reduction and internal fixation next week. Yenni Toscano MD
[2018-01-27] MEDS: Albuterol-Ipratrop 3 mg / 0.5 (3 ml) UD IH SCH ×4 (03:00→19:58)
[2018-01-27] MEDS: ceFAZolin IV 2 gm in Dextrose 2 GM/50 ML BAG IVPB SCH ×3 (05:34→22:07)
[2018-01-27] MEDS: Enoxaparin 40 mg Syringe SC SCH (05:34)
[2018-01-27] MEDS: MethylPREDNISolone 40 mg Vial IVP SCH ×2 (05:35→18:14)
[2018-01-27] MEDS: Arformoterol 15 mcg/2 ml Inh Sol IH SCH ×2 (07:47→19:57)
[2018-01-27] MEDS: Budesonide 0.5 mg/2 ml Inhal Susp UD IH SCH ×2 (07:47→19:58)
--- NOTE | 2018-01-27 09:11 | PN ---
DATE: 01/27/2018 SUBJECTIVE: The patient feels well offering no respiratory complaints. She is in TCU with multiple injuries as described previously. She has no dyspnea at rest. PHYSICAL EXAMINATION: VITAL SIGNS: Remain stable. She is afebrile, pulse 78, respiratory rate 16, blood pressure 110/70, oxygen saturation 96% on supplemental oxygen. HEENT: Normocephalic, atraumatic. NECK: Supple. No jugular venous distention. No bruits. No mass. CARDIOVASCULAR: Regular rhythm. S1, S2 without murmur, gallop or rub. LUNGS: Essentially clear to percussion and auscultation. ABDOMEN: Soft. Bowel sounds normoactive without mass, guarding, rebound or organomegaly. EXTREMITIES: No clubbing or cyanosis. The calves are nontender with no evidence of Homans' sign. The right lower extremity is splinted. SKIN: No rash or excoriation. NEUROLOGIC: No focal findings, but difficult to further evaluate. CLINICAL IMPRESSION: 1. Right tibial fracture. 2. Fibular fracture. 3. Olecranon fracture. 4. Status post fall. 5. Advanced chronic obstructive pulmonary disease. PLAN: Continue vigorous support for fractures. Continue inhaled bronchodilators and corticosteroids. I have encouraged the patient to use her incentive spirometry 10 times each hour. This is not being used. I have discussed the importance of this with the patient. Corticosteroids were decreased yesterday, can be further decreased in the morning. [facility] are aware of these of these problems. We will need to follow up closely. Vigorous supportive care and monitoring for additional potential problems is essential. We will follow up closely with you. Continue Brovana with occasional albuterol as necessary, budesonide continues, methylprednisolone is being given at 20 mg twice daily and this will be decreased in the morning. The patient is on Lovenox and is being followed closely by her primary medical doctor, Dr. Toscano. Continue vigorous supportive care. We will follow up closely as required. Thank you for the opportunity to follow this patient closely Tomer Lomax MD
[2018-01-27] MEDS: Metoprolol Succinate 25 mg XL Tab PO SCH (09:20)
[2018-01-27] MEDS: POLYETHYLENE GLYCOL 3350 17 GM/Dose PACKET PO SCH (09:20)
[2018-01-27] MEDS: TRANYLCYPROMINE 10 MG PO SCH ×2 (09:20→17:28)
--- NOTE | 2018-01-27 17:18 | PN ---
DATE: 01/27/2018 SUBJECTIVE: The patient is 83-year-old, seen and examined, sitting in chair, eating and tolerating. No constipation. PHYSICAL EXAMINATION: VITAL SIGNS: She is afebrile, pulse 70, respirations 20, blood pressure 112/59. LUNGS: Bilateral fair airflow. No rhonchi. Occasional crackles in the bases. HEART: S1, S2 audible. ABDOMEN: Soft, nontender. No rebound. No guarding. NEUROLOGICAL: The patient is awake, alert, oriented, communicative. EXTREMITIES: Left elbow is in the sling. Right knee is in immobilizer. ASSESSMENT: 1. Status post fall. 2. Right tibial fracture. 3. Left olecranon fracture status post open reduction and internal fixation. 4. Chronic obstructive pulmonary disease. 5. History of depression. PLAN: We will continue patient on current medication. I will order for CBC and CMP in the a.m. Yenni Toscano MD
[2018-01-28] MEDS: Albuterol-Ipratrop 3 mg / 0.5 (3 ml) UD IH SCH ×4 (02:40→20:07)
[2018-01-28] MEDS: Enoxaparin 40 mg Syringe SC SCH (06:00)
[2018-01-28] MEDS: MethylPREDNISolone 40 mg Vial IVP SCH ×2 (06:00→18:39)
[2018-01-28] MEDS: ceFAZolin IV 2 gm in Dextrose 2 GM/50 ML BAG IVPB SCH ×3 (06:02→22:08)
[2018-01-28 06:18] LABS: GRAN # 6.35 (1.4-6.5); GRAN % 76.5 % (50.0-68.0); HEMOGLOBIN 9.7 g/dL (12.0-16.0); LYMPH # 1.1 (1.2-3.4); LYMPH % 13.7 % (22.0-35.0); MEAN CELL VOLUME 100.6 fl (80.0-105.0); MEAN CORPUSCULAR HEMOGLOBIN 31.2 pg (25.0-35.0); MEAN PLATELET VOLUME 10.4 fl (7.0-11.0); MONO # 0.8 (0.1-0.6); MONO % 9.8 % (1.0-6.0); RBC 3.11 10^6/uL (3.5-6.1); RED CELL DISTRIBUTION WIDTH 13.4 % (11.5-14.5); WHITE BLOOD COUNT 8.3 10^3/uL (4.5-11.0)
[2018-01-28 06:46] LABS: ALB/GLOB RATIO 1.1 (1.1-1.8); ALBUMIN 3.1 g/dL (3.0-4.8); ALT/SGPT 22 U/L (7-56); AST/SGOT 20 U/L (14-36); BLOOD UREA NITROGEN 27 mg/dL (7-21); CALCIUM 8.4 mg/dL (8.4-10.5); GFR NON-AFRICAN AMERICAN > 60
[2018-01-28] MEDS: Arformoterol 15 mcg/2 ml Inh Sol IH SCH ×2 (07:18→20:07)
[2018-01-28] MEDS: Budesonide 0.5 mg/2 ml Inhal Susp UD IH SCH ×2 (07:18→20:08)
--- NOTE | 2018-01-28 09:16 | PN ---
DATE: 01/28/2018 PULMONARY PROGRESS NOTE SUBJECTIVE: The patient remains in the TCU with multiple injuries. She is feeling well with no respiratory distress. Son is present at the bedside who was asking about previous radiographic abnormalities of nodules seen on previous CT of the chest. These are not available at this time for my comparison. PHYSICAL EXAMINATION: VITAL SIGNS: Remain stable. The patient is afebrile with a respiratory rate of 16, heart rate of 70, blood pressure 110/70, O2 sat 96% on supplemental oxygen. HEENT: Normocephalic, atraumatic. NECK: Supple. No jugular venous distention. No bruit or mass. CARDIOVASCULAR: Regular rhythm. S1, S2 without murmur, gallop, or rub. LUNGS: Essentially clear to percussion and auscultation. ABDOMEN: Soft. Bowels sounds normoactive without mass, guarding, or rebound. No organomegaly. EXTREMITIES: Reveal no clubbing, cyanosis or edema, the right lower lobes remain splinted. SKIN: Shows no rash or excoriation. NEUROLOGIC: No focal findings. IMPRESSION: 1. Status post multiple fractures. 2. Status post fall. 3. Advanced chronic obstructive pulmonary disease. 4. Presence of nodules that need to be compared with previous CAT scan. I have explained to the patient that these films will be located. They are not available at this time during her hospitalization. She will need to come back to the office once she is released from the hospital. We will be able to get all films together and compare previous and present CAT scans to evaluate any changes in the pulmonary nodules previously seen. At this point; however, these tests are not available. She has been asked to call our office once she is discharged and we will be able to locate all the appropriate studies and discuss thoroughly. We will follow closely with you and decide the need for further interventions as required. Tomer Lomax MD
[2018-01-28] MEDS: POLYETHYLENE GLYCOL 3350 17 GM/Dose PACKET PO SCH (10:24)
[2018-01-28] MEDS: TRANYLCYPROMINE 10 MG PO SCH ×2 (10:24→18:40)
[2018-01-28] MEDS: Metoprolol Succinate 25 mg XL Tab PO SCH (18:39)
[2018-01-29] MEDS: Albuterol-Ipratrop 3 mg / 0.5 (3 ml) UD IH SCH ×4 (01:37→21:05)
[2018-01-29] MEDS: MethylPREDNISolone 40 mg Vial IVP SCH ×2 (05:40→18:28)
[2018-01-29] MEDS: Enoxaparin 40 mg Syringe SC SCH (05:40)
[2018-01-29] MEDS: Budesonide 0.5 mg/2 ml Inhal Susp UD IH SCH ×2 (07:08→21:05)
[2018-01-29] MEDS: Arformoterol 15 mcg/2 ml Inh Sol IH SCH ×2 (07:08→21:05)
--- NOTE | 2018-01-29 08:24 | PN ---
DATE: 01/29/2018 SUBJECTIVE: The patient appears comfortable this morning. She is not short of breath at rest. PHYSICAL EXAMINATION: VITALS (LAST NOTED IN THE COMPUTER): Temperature is 97.3, pulse 78, respirations 19, blood pressure 129/46. Oxygen saturation on nasal cannula is 98%. HEENT: Normocephalic, atraumatic. No JVD. CARDIOVASCULAR: Systolic ejection murmur at the lower left sternal border. No S3 gallop. LUNGS: Clear bilaterally this morning. EXTREMITIES: Mild edema. No cyanosis, no clubbing. Calves are nontender to palpation. The right lower extremity remains splinted. GASTROINTESTINAL: Abdomen is soft, nontender, nondistended. Bowel sounds are positive. SKIN: No acute rash. NEUROLOGIC: Exam limited at the present time. IMPRESSION: 1. Right tibial, fibular fractures. 2. Left olecranon fracture. 3. Status post fall at home. 4. Advanced chronic obstructive pulmonary disease. 5. History of depression. PLAN: The patient appears comfortable this morning. She is not short of breath at rest. She does state to feeling better overall. On physical exam, her lungs are clear this morning. In addition, the oxygen saturation on nasal cannula is now 98%. I will continue with the current nebulizer treatments and low-dose intravenous steroids for now. Input by Internal Medicine is noted. The patient is for possible repair of her right tibial, fibular fractures tomorrow. I will try to discuss the exact timing with Orthopedics. Clinical status of the patient is certainly improved - compared to the initial presentation. She does remain guarded overall - given her longstanding chronic obstructive pulmonary disease. I will discuss the above with Dr. Toscano. Ruiz Simpson MD MTDD
[2018-01-29] MEDS: TRANYLCYPROMINE 10 MG PO SCH ×2 (10:00→18:27)
[2018-01-29] MEDS: POLYETHYLENE GLYCOL 3350 17 GM/Dose PACKET PO SCH (10:01)
[2018-01-29] MEDS: Metoprolol Succinate 25 mg XL Tab PO SCH (10:01)
[2018-01-29 17:03] VITALS: RESP 20
[2018-01-30] MEDS: Albuterol-Ipratrop 3 mg / 0.5 (3 ml) UD IH SCH ×3 (01:20→13:18)
--- NOTE | 2018-01-30 03:26 | PN ---
DATE: 01/29/2018 SUBJECTIVE: The patient is 83 years old, seen and examined, lying in bed, seems to be comfortable, no complaint of pain in the arm or the leg, mild shortness of breath. PHYSICAL EXAMINATION: VITAL SIGNS: She is afebrile, pulse 78, respirations 20, blood pressure 115/52. LUNGS: Bilateral fair airflow. No rhonchi or crackle. HEART: S1 and S2 audible. ABDOMEN: Soft, nontender. No rebound. No guarding. NEUROLOGIC: The patient is awake and alert, communicative. LABORATORY DATA: No new lab available today. ASSESSMENT: 1. Status post fall. 2. Left olecranon process fracture status post open reduction and internal fixation. 3. Chronic obstructive pulmonary disease. 4. Right tibial fracture. PLAN: The patient is being prepped for right tibial open reduction and internal fixation for a.m. We will continue steroids, continue DVT prophylaxis. We will hold Lovenox for tomorrow. Yenni Tocsano MD
[2018-01-30] MEDS: MethylPREDNISolone 40 mg Vial IVP SCH (05:38)
[2018-01-30] MEDS: Budesonide 0.5 mg/2 ml Inhal Susp UD IH SCH (07:09)
[2018-01-30] MEDS: Arformoterol 15 mcg/2 ml Inh Sol IH SCH (07:09)
[2018-01-30 07:20] LABS: BASO # 0.01 K/mm3 (0.0-2.0); BASO % 0.1 % (0.0-3.0); EOS % 0.2 % (1.5-5.0); GRAN # 8.14 (1.4-6.5); GRAN % 75.9 % (50.0-68.0); HEMOGLOBIN 9.9 g/dL (12.0-16.0); LYMPH # 1.5 (1.2-3.4); LYMPH % 13.6 % (22.0-35.0); MEAN CORPUSCULAR HEMOGLOBIN 30.9 pg (25.0-35.0); MEAN CORPUSCULAR HGB CONC 30.9 g/dl (31.0-37.0); MEAN PLATELET VOLUME 10.4 fl (7.0-11.0); MONO # 1.1 (0.1-0.6); MONO % 10.2 % (1.0-6.0); RBC 3.2 10^6/uL (3.5-6.1); RED CELL DISTRIBUTION WIDTH 13.6 % (11.5-14.5); WHITE BLOOD COUNT 10.7 10^3/uL (4.5-11.0)
[2018-01-30 07:35] LABS: BLOOD UREA NITROGEN 30 mg/dL (7-21); GFR NON-AFRICAN AMERICAN > 60
[2018-01-30 07:36] LABS: ALB/GLOB RATIO 1.1 (1.1-1.8); ALT/SGPT 27 U/L (7-56); AST/SGOT 20 U/L (14-36); CALCIUM 8.4 mg/dL (8.4-10.5)
[2018-01-30 09:09] VITALS: O2SAT 93
[2018-01-30 10:04] VITALS: BP 125/61; PULSE 75; TEMP 97.1
[2018-01-30] MEDS: TRANYLCYPROMINE 10 MG PO SCH (10:25)
[2018-01-30] MEDS: Metoprolol Succinate 25 mg XL Tab PO SCH (10:25)
[2018-01-30] MEDS: POLYETHYLENE GLYCOL 3350 17 GM/Dose PACKET PO SCH (10:25)
--- NOTE | 2018-01-30 10:59 | PN ---
DATE: 01/30/2018 SUBJECTIVE: The patient appears comfortable this morning. She is not short of breath at rest. PHYSICAL EXAMINATION: VITAL SIGNS (Last noted in the computer): Temperature is 97.4, pulse 78, respirations 18/20, blood pressure 115/52. Oxygen saturation on nasal cannula is 91%-98%. HEENT: Normocephalic, atraumatic. No JVD. CARDIOVASCULAR: Systolic ejection murmur at the lower left sternal border. No S3 gallop. LUNGS: Clear bilaterally. EXTREMITIES: Mild edema. No cyanosis, no clubbing. Calves are nontender to palpation. The right lower extremity remains splinted. GASTROINTESTINAL: Abdomen is soft, nontender and nondistended. Bowel sounds are positive. SKIN: No acute rash. NEUROLOGIC: Exam limited at the present time. IMPRESSION: 1. Right tibial, fibular fractures. 2. Left olecranon fracture. 3. Status post fall at home. 4. Advanced chronic obstructive pulmonary disease. 5. History of depression. PLAN: The patient appears comfortable this morning. She is not short of breath at rest. She does state to feeling much better overall. On physical exam, her lungs remain clear. In addition, there is no significant alveolar-arterial gradient. I will continue the current nebulizer treatments and low-dose intravenous steroids for now. Input by Internal Medicine is also noted. The patient is for probable repair of her right tibial, fibular fractures later today. I will continue to follow the patient closely perioperatively. I will discuss the above with the attending physician. Ruiz Simpson MD MTDD
[2018-01-30] MEDS ORDERED: Propofol 10 mg/ml Inj (20 ML) ONE (14:56)
[2018-01-30] MEDS ORDERED: Etomidate 20 mg/10ml Inj IV ONE (14:57)
[2018-01-30] MEDS ORDERED: Rocuronium 10 mg/ml (5 ml) ONE ×2 (14:57→15:41)
[2018-01-30] MEDS ORDERED: Glycopyrrolate 0.2 mg/ml (2ml vial) ONE (18:00)
--- NOTE | 2018-01-30 21:28 | DS ---
HISTORY OF PRESENT ILLNESS: The patient is an 83-year-old, who was initially admitted on 01/25/2018 after she fell from stairs and she sustained left olecranon fracture and right tibial fracture. She had open reduction and internal fixation for her left olecranon process and was in TCU for rehab and close monitoring. She is being discharged today to get admitted the same-day surgery for open reduction and internal fixation of right tibial fracture. PAST MEDICAL HISTORY: She has significant past medical history of: 1. COPD. 2. History of depression. MEDICATIONS: She is on Parnate, Xanax, and Trelegy. PHYSICAL EXAMINATION: GENERAL: She is awake, alert, oriented and communicative. VITAL SIGNS: She is afebrile, pulse 75, respirations 20, and blood pressure 125/61. LUNGS: Bilateral fair airflow. No rhonchi or crackle. HEART: S1 and S2 audible. ABDOMEN: Soft and nontender. No rebound. No guarding. EXTREMITIES: Left arm is in the sling and right knee is in immobilizer. NEUROLOGICAL: The patient is awake, alert, oriented, and able to communicate. ASSESSMENT AND PLAN: 1. Status post fall. 2. Right tibial fracture. 3. Left olecranon fracture. 4. Chronic obstructive pulmonary disease. 5. Hypotension. 6. History of depression. PLAN: The patient is being discharged today. She had open reduction and internal fixation of the right tibial fracture, will be admitted on acute care floor. Yenni Toscano MD
== END 2018-01-30 13:30 | disposition short-term general hospital (02) | DRG 560 ==
LOC: TRCU 19:38
PROVIDERS: ADMIT Internal Medicine; ATTEND Internal Medicine
PROC: 3E0F7GC Introduction of Other Therapeutic Substance into Respiratory Tract, Via Natural or Artificial Opening (ICD-10-PCS; 2018-01-25)
PROC: F07Z9ZZ Gait Training/Functional Ambulation Treatment (ICD-10-PCS; principal; 2018-01-26)
PROC: F08Z4ZZ Home Management Treatment (ICD-10-PCS; 2018-01-26)
DX: S52.022D Displaced fracture of olecranon process without intraarticular extension of left ulna, subsequent encounter for closed fracture with routine healing (principal); S82.191A Other fracture of upper end of right tibia, initial encounter for closed fracture; S82.409A Unspecified fracture of shaft of unspecified fibula, initial encounter for closed fracture; J44.9 Chronic obstructive pulmonary disease, unspecified; F17.200 Nicotine dependence, unspecified, uncomplicated; F32.9 Major depressive disorder, single episode, unspecified; W01.0XXD Fall on same level from slipping, tripping and stumbling without subsequent striking against object, subsequent encounter

== ENCOUNTER 2018-01-30 13:29 | Inpatient (IN) | payer MEDICARE ==
[2018-01-29 17:55] VITALS: BMI 25.6
[2018-01-30] MEDS ORDERED: Vancomycin 1 g Inj ONE (16:21)
[2018-01-30] MEDS: Bupivacaine 0.5% 50 ML IJ ONE ×2 (17:45→18:00)
[2018-01-30] MEDS: HYDROmorphone 0.5 mg/0.5 ml ISec IVP PRN ×3 (18:22→18:53)
[2018-01-30] MEDS ORDERED: HYDROmorphone 0.5 mg/0.5 ml ISec ONE ×2 (18:24→18:38)
[2018-01-30] MEDS ORDERED: Lactated Ringer's 1,000 ML IV SCH (18:30)
[2018-01-30] MEDS ORDERED: oxyCODONE 10 mg Immediate Release Tab PO PRN (18:37)
[2018-01-31] MEDS: HYDROmorphone 0.5 mg/0.5 ml ISec IVP PRN ×2 (02:15→06:51)
[2018-01-31] MEDS: ceFAZolin IV 2 gm in 50 mL D5W IVPB SCH ×3 (02:15→15:41)
--- NOTE | 2018-01-31 05:12 | OP ---
PROCEDURE DATE: 01/30/2018 PREOPERATIVE DIAGNOSIS: Right bicondylar tibial plateau fracture. POSTOPERATIVE DIAGNOSIS: Right bicondylar tibial plateau fracture. PROCEDURE: Open reduction and internal fixation of right tibial plateau fracture with a locking plate. ANESTHESIA: General. COMPLICATIONS: None. ESTIMATED BLOOD LOSS: 50 mL. TOURNIQUET TIME: 115 minutes at 300 mmHg. IMPLANT: Synthes lateral proximal tibial locking plate. INDICATION FOR PROCEDURE: This is an 83-year-old female, who approximately 9 days ago sustained a fall, fractured her right tibial plateau. Clinical examination, the patient now has a considerable amount of soft tissue swelling and radiographic CAT scan examination presents with a comminuted proximal and tibial fracture. Recommendations were for open reduction and internal fixation once the soft tissue swelling has subsided. The risks, benefits, and alternatives of the procedure were discussed with the patient including nonunion, malunion, nerve injury, symptomatic hardware and posttraumatic arthritis were discussed with the patient and the patient's family and informed consent was obtained. DESCRIPTION OF PROCEDURE: After the surgical site was signed and verified in the preoperative holding area, the patient was taken to the operating room and placed supine on the operating room table. After administration of general anesthesia, the patient received 2 g of Ancef IV. Tourniquet was placed about the right thigh. Care was taken to make sure all bony prominences and nerves were well padded and protected. Venodyne boot was placed on the nonoperative extremity and the right lower extremity was prepped and draped in usual sterile fashion. The tourniquet was inflated. The bony landmarks were identified about the distal femur and proximal tibia and approximately 12 cm hockey-stick type of incision was made along the iliotibial band over the distal femur curving down and extending just past Gerdy's tubercle. The large medial and lateral flaps were raised and the fascia was incised in line with fibers of the ITB and in line with the fibers over the Gerdy's tubercle. Once this was done, the anterior compartment ____ was elevated off the proximal tibia and a submeniscal arthrotomy was performed, which gave us exposure to allow visualization of the articular surface. The meniscus was tagged using three FiberWire sutures for later repair. Once the fracture site was exposed, the wound was irrigated with antibiotic saline solution. At this point, open reduction was performed first through the fracture site using osteotome and a bone tip. The joint surface was elevated and this was done using the C-arm in both AP and lateral planes. Once this was done, some cancellous allograft bone chips and putty were then packed into the metaphyseal defect. Next, bone reduction forceps were used to close at the fracture site. Next, a locking plate was placed along the lateral aspect of the proximal tibia and this was provisionally held in place using K-wires. The position of the plate was confirmed using the image intensifier. At this point, the fracture was definitively fixed with multiple locking screws in the proximal segment capturing both lateral and medial fragments and multiple locking screws in the shaft. Once all the screws were placed, the K-wires were removed. The patient was also noted to have what looked like a partial avulsion in the tibial tubercle and this was fixed using a 3.5 anterior-posterior screw. At this point, final images were taken showing good fracture reduction and good placement of the hardware. At this point, the tourniquet was deflated and any obvious bleeding was cauterized. The wound was copiously irrigated and the fascia was loosely approximated using #1 Vicryl suture. Subcutaneous tissue was closed using 0 Vicryl and 2-0 Vicryl suture and the skin was closed using 3-0 nylon. Sterile dressing was applied and a knee immobilizer was placed. The patient was awakened from anesthesia and taken to recovery room in stable condition. Gabino Barth MD
[2018-01-31 07:09] LABS: BASO # 0.02 K/mm3 (0.0-2.0); BASO % 0.2 % (0.0-3.0); EOS # 0.2 (0.0-0.7); GRAN # 7.46 (1.4-6.5); GRAN % 68.5 % (50.0-68.0); HEMOGLOBIN 9.9 g/dL (12.0-16.0); LYMPH # 2.1 (1.2-3.4); LYMPH % 18.9 % (22.0-35.0); MEAN CELL VOLUME 101.3 fl (80.0-105.0); MEAN CORPUSCULAR HEMOGLOBIN 31.2 pg (25.0-35.0); MEAN CORPUSCULAR HGB CONC 30.8 g/dl (31.0-37.0); MEAN PLATELET VOLUME 10.4 fl (7.0-11.0); MONO # 1.1 (0.1-0.6); MONO % 10.4 % (1.0-6.0); RBC 3.17 10^6/uL (3.5-6.1); RED CELL DISTRIBUTION WIDTH 13.7 % (11.5-14.5); WHITE BLOOD COUNT 10.9 10^3/uL (4.5-11.0)
[2018-01-31] MEDS ORDERED: Albuterol-Ipratrop 3 mg / 0.5 (3 ml) UD IH PRN (07:20)
[2018-01-31 07:41] LABS: BLOOD UREA NITROGEN 33 mg/dL (7-21); CALCIUM 7.9 mg/dL (8.4-10.5); GFR NON-AFRICAN AMERICAN > 60
--- NOTE | 2018-01-31 08:58 | PN ---
DATE: 01/31/2018 SUBJECTIVE: The patient appears comfortable this morning. She is not short of breath at rest. PHYSICAL EXAMINATION: VITAL SIGNS: (Last noted in the computer): Temperature 97.3, pulse 64, respirations 18, blood pressure 107/60. Oxygen saturation on nasal cannula is 92-96%. HEENT: Normocephalic, atraumatic. NECK: No JVD. CARDIOVASCULAR: Systolic ejection murmur at the lower left sternal border. No S3 gallop. LUNGS: Clear bilaterally. EXTREMITIES: Mild edema. No cyanosis or clubbing. Calves are nontender to palpation. The right lower extremity remains splinted, status post surgery. GI: Abdomen is soft, nontender and nondistended. Bowel sounds are positive. SKIN: No acute rash. NEUROLOGIC: Exam limited at the present time. IMPRESSION: 1. Right tibial, fibular fractures. 2. Left olecranon fracture. 3. Status post fall at home. 4. Advanced chronic obstructive pulmonary disease. 5. History of depression. PLAN: The patient appears comfortable this morning. She is not short of breath at rest. She does state to feeling better overall. I did discuss the case with the night nurse at length. The night nurse stated that the patient had a good night. On physical exam, the patient's lungs remain clear. In addition, there is no significant alveolar-arterial gradient. I will restart the DuoNebs and inhaled Pulmicort - in this patient with advanced chronic obstructive pulmonary disease. I will also restart the steroids - low-dose oral prednisone. Inputs by Internal Medicine and Orthopedics are noted. Again, I did discuss the case with the night nurse and the patient at length. The patient is for transfer to a subacute rehab facility in the near future. She is doing very well postoperatively. I would recommend continuing the nebulizer treatments, and weaning the steroids over the next 3-5 days. I will thus follow up on this patient again as requested. Please call me for any additional pulmonary questions or problems with this patient. I would be happy to reevaluate. Ruiz Simpson MD [facility] # [phone] [place]
[2018-01-31] MEDS ORDERED: Metoprolol Succinate 25 mg XL Tab PO SCH (10:00)
[2018-01-31] MEDS: TRANYLCYPROMINE 10 MG PO SCH ×2 (10:56→19:26)
[2018-01-31] MEDS: oxyCODONE 5 mg Immediate Release Tab PO PRN ×4 (10:58→23:58)
[2018-01-31] MEDS: Budesonide 0.5 mg/2 ml Inhal Susp UD IH SCH ×2 (11:29→21:19)
[2018-01-31] MEDS: Albuterol-Ipratrop 3 mg / 0.5 (3 ml) UD IH SCH ×3 (11:29→21:19)
--- NOTE | 2018-01-31 14:16 | RAD ---
Date of service: 01/30/2018 PROCEDURE: Tibia and fibula right-side HISTORY: patient in pacu COMPARISON: TECHNIQUE: Two views portable FINDINGS: The distal tibia and fibular are unremarkable. There has been internal fixation proximally. IMPRESSION: Negative study
--- NOTE | 2018-01-31 14:30 | RAD ---
Date of service: 01/30/2018 PROCEDURE: Right knee two views HISTORY: s/p ORIF tib plateau. include tib/fib COMPARISON: TECHNIQUE: Two views FINDINGS: There is a plate and multiple screws in the proximal tibia. There is normal alignment. There is also a displaced fracture of the proximal fibula IMPRESSION: As above
--- NOTE | 2018-01-31 14:39 | RAD ---
Date of service: 01/30/2018 PROCEDURE: Fluoroscopy up to 1 hr. HISTORY: O.R.I.F. RT. TIB. -FIB. COMPARISON: None TECHNIQUE: Standard protocol for this study/examination. FINDINGS: Total fluoroscopic time (continuous mode) utilized during the procedure 161.0 seconds. Total exam DLP: 7.83 (mGy). IMPRESSION: Less than 1 hr fluoroscopic assistance provided during performance of the procedure.
[2018-02-01] MEDS: Albuterol-Ipratrop 3 mg / 0.5 (3 ml) UD IH SCH ×4 (02:45→21:00)
[2018-02-01] MEDS: oxyCODONE 5 mg Immediate Release Tab PO PRN ×2 (05:11→12:34)
--- NOTE | 2018-02-01 07:30 | CON ---
DATE OF CONSULTATION: 01/31/2018 HISTORY OF PRESENT ILLNESS: The patient is an 83-year-old who fell on January 21, while going upstairs, had some object in her hand, lost balance, fell backwards, hit her head and broke left olecranon process, had open reduction internal fixation, was in TCU for few days for rehab and was readmitted yesterday for right tibial fracture. She underwent open reduction internal fixation. Complained of pain to the surgical site. No nausea or vomiting. Does have shortness of breath. PAST MEDICAL HISTORY: Significant for: 1. COPD. 2. Anxiety disorder. 3. Chronic degenerative disk disease. 4. Compression fracture. ALLERGIES: SHE IS NOT ALLERGIC TO ANY MEDICATION. MEDICATIONS AT HOME: She is on Parnate 10 mg 2 tablets twice a day, metoprolol 25 daily, Xanax 0.25 daily. SOCIAL HISTORY: She lives with her daughter. Still actively smokes. Denies alcohol use. PHYSICAL EXAMINATION GENERAL: Complains of pain in the right leg surgical site. VITAL SIGNS: She is afebrile, pulse 69, respirations 18, blood pressure 97/47. LUNGS: Bilateral good air flow. No rhonchi or crackles. A soft crackle in the upper lung region though. HEART: S1 and S2 audible. ABDOMEN: Soft, nontender. No rebound. No guarding. NEUROLOGICAL: The patient is awake, alert, oriented, communicative. EXTREMITIES: Left arm is in the sling. Right knee is in knee immobilizer. ASSESSMENT: 1. Status post fall. 2. Right tibial fracture, status post open reduction and internal fixation. 3. Left olecranon open reduction and internal fixation. 4. Chronic obstructive pulmonary disease. 5. Anxiety disorder. PLAN: I will discontinue beta-faheem. Her blood pressure is running low and it might not help her COPD either. We will continue IV antibiotic and analgesic as needed. She is on DVT prophylaxis. She is on p.o. prednisone. We will continue with that. We will follow up patient. Yenni Toscano MD
[2018-02-01 08:03] LABS: BASO # 0.01 K/mm3 (0.0-2.0); BASO % 0.1 % (0.0-3.0); EOS # 0.4 (0.0-0.7); EOS % 2.4 % (1.5-5.0); GRAN # 10.68 (1.4-6.5); GRAN % 73.5 % (50.0-68.0); HEMOGLOBIN 9.4 g/dL (12.0-16.0); LYMPH # 1.8 (1.2-3.4); LYMPH % 12.2 % (22.0-35.0); MEAN CELL VOLUME 99.3 fl (80.0-105.0); MEAN CORPUSCULAR HEMOGLOBIN 30.8 pg (25.0-35.0); MEAN PLATELET VOLUME 10.3 fl (7.0-11.0); MONO # 1.7 (0.1-0.6); MONO % 11.8 % (1.0-6.0); RBC 3.05 10^6/uL (3.5-6.1); RED CELL DISTRIBUTION WIDTH 13.5 % (11.5-14.5); WHITE BLOOD COUNT 14.5 10^3/uL (4.5-11.0)
[2018-02-01] MEDS: Budesonide 0.5 mg/2 ml Inhal Susp UD IH SCH ×2 (08:34→21:00)
--- NOTE | 2018-02-01 08:35 | CP.PCM.PN ---
Subjective - Date & Time of Evaluation Date of Evaluation: 02/01/18 Time of Evaluation: 08:32 - Subjective Subjective: Awake, alert. Pt feels better. Less pain. Afebrile RLE: dressing changed incision clean and dry no cellulitis thigh soft, NT NVI distally WBC 14.5 Plan cont Ancef. change to Keflex when d/c to rehab NWB RLE plan for [facility] Objective - Vital Signs/Intake and Output Vital Signs (last 24 hours): Temp Pulse Resp BP Pulse Ox 98.3 F 72 20 109/52 L 94 L 01/31/18 22:00 01/31/18 22:00 01/31/18 22:00 01/31/18 22:00 01/31/18 22:00 Intake and Output: 02/01/18 02/01/18 06:59 18:59 Intake Total 360 Balance 360 - Medications Medications: Current Medications Albuterol/Ipratropium (Duoneb 3 Mg/0.5 Mg (3 Ml) Ud) 3 ml IH [id number] [facility] Last Admin: 02/01/18 02:45 Dose: 3 ml Albuterol/Ipratropium (Duoneb 3 Mg/0.5 Mg (3 Ml) Ud) 3 ml IH Q2H PRN PRN Reason: Shortness of Breath Alprazolam (Xanax) 0.25 mg PO DAILY PRN; Protocol PRN Reason: Anxiety Stop: 02/06/18 18:37 Apixaban (Eliquis) 2.5 mg PO BID [facility]; Protocol Last Admin: 01/31/18 19:26 Dose: Not Given Budesonide (Pulmicort Respules) 0.5 mg IH [id number] [facility] Last Admin: 01/31/18 21:19 Dose: 0.5 mg Hydromorphone HCl (Dilaudid) 0.5 mg IVP Q4H PRN PRN Reason: Pain, severe (8-10) Last Admin: 01/31/18 06:51 Dose: 0.5 mg Metoclopramide HCl (Reglan) 10 mg IV ONCE PRN PRN Reason: Nausea/Vomiting Tranylcypromine [ Parnate] 10 Mg (Home Med) 0 mg PO BID [facility] Last Admin: 01/31/18 19:26 Dose: 20 mg Oxycodone HCl (Oxycodone Immediate Release Tab) 5 mg PO Q4H PRN PRN Reason: Pain, Mild (1-3) Last Admin: 02/01/18 05:11 Dose: 5 mg Oxycodone HCl (Oxycodone Immediate Release Tab) 10 mg PO Q4H PRN PRN Reason: Pain, moderate (4-7) Prednisone (Prednisone Tab) 20 mg PO DAILY [facility] Last Admin: 01/31/18 10:57 Dose: 20 mg - Labs Labs: 02/01/18 07:30 01/31/18 06:30
[2018-02-01 08:39] LABS: BLOOD UREA NITROGEN 24 mg/dL (7-21); CALCIUM 7.7 mg/dL (8.4-10.5); GFR NON-AFRICAN AMERICAN > 60
[2018-02-01] MEDS: TRANYLCYPROMINE 10 MG PO SCH ×2 (11:04→17:42)
--- NOTE | 2018-02-01 20:58 | PN ---
DATE: 02/01/2018 SUBJECTIVE: The patient is 83 years old. Seen and examined. Lying in bed. Seems to be comfortable. Complaining of pain in the right knee. No chest pain. No shortness of breath. PHYSICAL EXAMINATION: VITAL SIGNS: The patient is afebrile, pulse 69, respirations 18, and blood pressure 100/47. LUNGS: Bilateral few soft crackles in the basal lung area. HEART: S1 and S2 audible. ABDOMEN: Soft and nontender. No rebound. No guarding. NEUROLOGICAL: The patient is awake, alert, oriented. Communicative. EXTREMITIES: The right leg is in immobilizer. Left arm is in the sling. LABORATORY EXAMINATION: WBC is 14.5, hemoglobin 9.4, hematocrit 30, platelet 190. Chemistry: Sodium 135, potassium 3.6, chloride 101, CO2 of 31, BUN 24, creatinine 0.6, blood sugar is 100. ASSESSMENT: 1. Status post fall. 2. Right tibial fracture. 3. Left olecranon fracture. 4. Chronic obstructive pulmonary disease. 5. Hypotension. 6. Depression. PLAN: Currently, the patient is on Keflex. She is on nebulizer treatment. We will cut down her steroids slowly. The patient will be transferred to subacute rehab either today or tomorrow depending on availability of the bed. Yenni Toscano MD
[2018-02-01 22:49] VITALS: RESP 20; O2SAT 90
[2018-02-02] MEDS: Albuterol-Ipratrop 3 mg / 0.5 (3 ml) UD IH SCH ×3 (01:24→13:59)
[2018-02-02 07:27] LABS: BASO # 0.01 K/mm3 (0.0-2.0); BASO % 0.1 % (0.0-3.0); EOS # 0.4 (0.0-0.7); EOS % 2.8 % (1.5-5.0); GRAN # 8.8 (1.4-6.5); GRAN % 71.6 % (50.0-68.0); HEMOGLOBIN 8.7 g/dL (12.0-16.0); LYMPH # 1.9 (1.2-3.4); LYMPH % 15.6 % (22.0-35.0); MEAN CELL VOLUME 98.9 fl (80.0-105.0); MEAN CORPUSCULAR HEMOGLOBIN 31.3 pg (25.0-35.0); MEAN CORPUSCULAR HGB CONC 31.6 g/dl (31.0-37.0); MEAN PLATELET VOLUME 10.6 fl (7.0-11.0); MONO # 1.2 (0.1-0.6); MONO % 9.9 % (1.0-6.0); RBC 2.78 10^6/uL (3.5-6.1); RED CELL DISTRIBUTION WIDTH 13.6 % (11.5-14.5); WHITE BLOOD COUNT 12.3 10^3/uL (4.5-11.0)
[2018-02-02 07:46] LABS: BLOOD UREA NITROGEN 19 mg/dL (7-21); CALCIUM 7.7 mg/dL (8.4-10.5); GFR NON-AFRICAN AMERICAN > 60
[2018-02-02] MEDS ORDERED: Potassium Chloride 20 mEq ER Tab PO ONE (08:36)
[2018-02-02] MEDS: Budesonide 0.5 mg/2 ml Inhal Susp UD IH SCH (08:36)
[2018-02-02] MEDS: TRANYLCYPROMINE 10 MG PO SCH (09:22)
[2018-02-02 09:44] VITALS: BP 112/63; PULSE 76; TEMP 98.4
[2018-02-02] MEDS: oxyCODONE 5 mg Immediate Release Tab PO PRN (14:14)
--- NOTE | 2018-02-02 14:54 | DS ---
HISTORY OF PRESENT ILLNESS: The patient is 83-year-old female seen and examined, lying in bed, seems to be comfortable. right leg at surgical site. Eating and tolerating. PHYSICAL EXAMINATION: VITAL SIGNS: She is afebrile, pulse 76, respirations 20, blood pressure 112/63. LUNGS: Bilateral fair air flow. No rhonchi or crackle. breath sounds at bases and posteriorly. HEART: S1 and S2 audible. ABDOMEN: Soft and nontender. No rebound. No guarding. NEUROLOGIC: She is awake, alert, oriented, communicative. Left arm is in the sling. Right knee is in immobilizer. LABORATORY DATA: WBC 12.3, hemoglobin 8.7, hematocrit 27.5, platelet 189. Chemistry; sodium 135, potassium 3.4, chloride 104, CO2 of 31, BUN 19, creatinine 0.6, blood sugar of 95. ASSESSMENT AND PLAN: 1. Status post fall. 2. Right tibial fracture status post open reduction and internal fixation. 3. Chronic obstructive pulmonary disease. 4. History of depression. So, plan is currently patient is on Eliquis 2.5 twice a day for DVT prophylaxis. Potassium has been supplemented. cut down on prednisone to 10 mg daily. She will be transferred to [facility] for rehab and gait training. Yenni Toscano MD
--- NOTE | 2018-02-02 18:01 | CP.PCM.DIS ---
Provider - Provider Date of Admission: 01/30/18 13:30 Attending physician: Gabino Barth MD Consults: 01/30/18 18:41 Physician Consult Routine Comment: Consulting Provider: Yenni Toscano Consulting Physician: Yenni Toscano Reason for Consult: post op medical management Time Spent in preparation of Discharge (in minutes): 5 Diagnosis - Discharge Diagnosis (1) Tibia fracture Status: Acute (2) Elbow fracture Status: Acute Hospital Course - Lab Results Lab Results: Most Recent Lab Values WBC 12.3 10^3/uL (4.5-11.0) H 02/02/18 06:45 RBC 2.78 10^6/uL (3.5-6.1) L 02/02/18 06:45 Hgb 8.7 g/dL (12.0-16.0) L 02/02/18 06:45 Hct 27.5 % (36.0-48.0) L 02/02/18 06:45 MCV 98.9 fl (80.0-105.0) 02/02/18 06:45 MCH 31.3 pg (25.0-35.0) 02/02/18 06:45 MCHC 31.6 g/dl (31.0-37.0) 02/02/18 06:45 RDW 13.6 % (11.5-14.5) 02/02/18 06:45 Plt Count 189 10^3/uL (120.0-450.0) 02/02/18 06:45 MPV 10.6 fl (7.0-11.0) 02/02/18 06:45 Gran % 71.6 % (50.0-68.0) H 02/02/18 06:45 Lymph % (Auto) 15.6 % (22.0-35.0) L 02/02/18 06:45 [place] % (Auto) 9.9 % (1.0-6.0) H 02/02/18 06:45 Eos % (Auto) 2.8 % (1.5-5.0) 02/02/18 06:45 Baso % (Auto) 0.1 % (0.0-3.0) 02/02/18 06:45 Gran # 8.80 (1.4-6.5) H 02/02/18 06:45 Lymph # (Auto) 1.9 (1.2-3.4) 02/02/18 06:45 [place] # (Auto) 1.2 (0.1-0.6) H 02/02/18 06:45 Eos # (Auto) 0.4 (0.0-0.7) 02/02/18 06:45 Baso # (Auto) 0.01 K/mm3 (0.0-2.0) 02/02/18 06:45 Sodium 135 mmol/L (132-148) 02/02/18 06:45 Potassium 3.4 mmol/L (3.6-5.0) L 02/02/18 06:45 Chloride 104 mmol/L (98-107) 02/02/18 06:45 Carbon Dioxide 31 mmol/L (21-33) 02/02/18 06:45 Anion Gap 3 (10-20) L 02/02/18 06:45 BUN 19 mg/dL (7-21) 02/02/18 06:45 Creatinine 0.6 mg/dl (0.7-1.2) L 02/02/18 06:45 Est GFR ( Amer) > 60 02/02/18 06:45 Est GFR (Non-Af Amer) > 60 02/02/18 06:45 Random Glucose 95 mg/dL (70-110) 02/02/18 06:45 Calcium 7.7 mg/dL (8.4-10.5) L 02/02/18 06:45 - Hospital Course Hospital Course: Patient underwent ORIF of right tibial plateau fracture on 01/30/18 s/p fall. Patient is also s/p ORIF left olecranon fracture. Patient NWB LUE and RLE. Patient was started on ELiquis 2.5mg BID for DVT prophylaxis. Hgb hemodynamically stable throughout admission. Patient was discharged to [facility] and continued on Eliquis 2.5mg as well as Keflex 500mg QID. Patient will continue to be NWB of LUE and RLE. Patient will follow up in Dr. Barth's office next week for a follow up. Discharge Plan - Discharge Medications Prescriptions: Apixaban [Eliquis] 2.5 mg PO BID 28 Days tab Cephalexin [cephalexin] 500 mg PO Q6H 5 Days cap - Follow Up Plan Disposition: REHAB FACILITY/REHAB UNIT Instructions: Tibial Plateau Fracture, Open Reduction and Internal Fixation Surgery (DC) Additional Instructions: Patient discharged to [facility] Schedule appointment for Left Elbow Xray. Follow-up with Dr. Hamm next , February 08, 2018. Referrals: Gabino Barth MD [Staff Provider] -
== END 2018-02-02 14:22 | DRG 494 ==
LOC: SDS 13:29 → SDAINP 13:30 → EDSTATUS 14:00 → 5RNO 20:57
PROVIDERS: ADMIT Orthopaedic Surgery; ATTEND Orthopaedic Surgery
PROC: 2W3BXYZ Immobilization of Left Upper Arm using Other Device (ICD-10-PCS; 2018-01-30)
PROC: 0QSG04Z Reposition Right Tibia with Internal Fixation Device, Open Approach (ICD-10-PCS; principal; 2018-01-30 14:00)
DX: S82.141A Displaced bicondylar fracture of right tibia, initial encounter for closed fracture (principal); S52.022A Displaced fracture of olecranon process without intraarticular extension of left ulna, initial encounter for closed fracture; J44.9 Chronic obstructive pulmonary disease, unspecified; F32.9 Major depressive disorder, single episode, unspecified; F41.9 Anxiety disorder, unspecified; W10.9XXA Fall (on) (from) unspecified stairs and steps, initial encounter; I95.9 Hypotension, unspecified; W10.2XXA Fall (on)(from) incline, initial encounter; Y92.009 Unspecified place in unspecified non-institutional (private) residence as the place of occurrence of the external cause